=== PATIENT | male | born 1945 | race Caucasian/White ===

== ENCOUNTER 2020-08-18 11:34 | Emergency (ER) | payer MEDICARE, SELFPAY ==
--- NOTE | 2020-08-18 11:42 | XR_ITS ---
WS: [id number] Left hip, AP and frog leg views, 08/18/2020 Clinical Data: pain Comparison: None. Findings: No fractures or dislocations are seen. The hip joint is intact. The soft tissues are not remarkable. The adjacent pelvis is normal. XR/XR hip LT 2-3V wo/w pel* [id number] Impression: Negative left hip.
[2020-08-18 11:50] VITALS: BP 131/86; PULSE 87; RESP 18; TEMP 35.8; O2SAT 94; BMI 28.1
[2020-08-18] MEDS: HYDROcodone-acetaminophen 5-325 mg Tablet 1 TAB PO (12:05)
--- NOTE | 2020-08-18 12:07 | W.ED.EXTPRO ---
HPI - Extremity Problem General: Chief complaint: Extremity Problem,Nontraumatic Stated complaint: left hip pain Time Seen by Provider: 08/18/20 11:57 Source: patient Mode of arrival: ambulatory Limitations: no limitations History of Present Illness: HPI Narrative: 75-year-old male states he was lifting a bucket just prior to arrival and felt a pop in his left hip. He states that he has had left hip pain since then. He states that it is sharp in nature. States pain is currently a 7 out of 10 and is worse with movement or ambulating. States the pain radiates down his leg. Denies any other injuries. Denies any back pain. Associated symptoms: Deny chest pain, fever(s) or rash Review of Systems Const: Denies: fever(s), chills, body aches or change in appetite Eyes: Denies: blurry vision or eye discomfort ENMT: Denies: throat pain or dental pain Card: Denies: chest pain Resp: Denies: dyspnea GI: Denies: abdominal pain, nausea, vomiting or diarrhea : Denies: dysuria Musc: Reports: joint pain; Denies: neck pain or back pain Skin/Breast: Denies: rash Neuro: Denies: headache(s) Psych: Denies: depression Chi/Lymph: Denies: easy bruising All/Imm: Denies: urticaria Physical Exam Const: COMMON NORMALS: no acute distress, patient oriented x3 and healthy appearing HENMT: COMMON NORMALS: normocephalic and atraumatic HEAD & SCALP: normocephalic and atraumatic Eye: COMMON NORMALS: Equal, round and reactive pupils present and EOMs intact bilaterally PUPIL: Yes Equal, round and reactive pupils present Neck/C-Spine: COMMON NORMALS: full ROM and supple Chest: COMMONS NORMALS: normal inspection of the chest and normal palpation of entire chest wall Resp: COMMON NORMALS: normal respiratory effort, No retractions, No use of accessory muscles and clear to auscultation bilaterally AUSCULTATION: clear to auscultation bilaterally Cardio: COMMON NORMALS: regular rate, regular rhythm and No murmurs present (Cardio) RATE: regular rate RHYTHM: regular rhythm GI: COMMON NORMALS: Normal to inspection, nondistended, normoactive bowel sounds present, Soft to palpation, non-tender and no masses PALPATION: Yes Soft to palpation Extremity: COMMON NORMALS: normal to inspection NARRATIVE EXTREMITY EXAM: left hip tenderness pt able to ambulate Neuro: COMMON NORMALS: patient oriented x3, moves all extremities and no focal motor deficits Psych: COMMON NORMALS: mental status grossly normal, Normal thought process present and cooperative THOUGHT PROCESS: Normal thought process present Skin: COMMON NORMALS: no rashes or lesions noted and no wounds GENERAL SKIN EXAM: no rashes or lesions noted Course Vital Signs: Vital signs: Vital Signs Temperature 98.0 F 08/18/20 12:45 Pulse Rate 74 08/18/20 12:45 Respiratory Rate 18 08/18/20 12:45 Blood Pressure 128/78 08/18/20 12:45 Pulse Oximetry 98 08/18/20 12:45 MDM - Extremity (Nontraumatic) MDM Narrative: Medical decision making narrative: Jann presents here with a hip sprain likely muscular in nature. He is able ambulate and his x-rays show no fracture. We will have him follow-up with orthopedics he still has pain we will place him on Naprosyn and Robaxin he is to ice. He is return if worsening. He understands and agrees to plan. Imaging Data^: Xray Ortho: Radiologist's impression: [address] [place] [address] XRay Report Signed Patient: Jann Salas Unit #: [id number] : 1945 Age/Sex: 75 / M ADM Date: 08/18/20 Loc: ER Room/Bed: Attending Dr: Ordering Provider/Ordering MD: Bruce Roblero MD Date of Service: 08/18/20 Procedure(s): XR hip LT 2-3V wo/w pel* [id number] Accession Number(s): [id number] Report Number: [id number] WS: [id number] Left hip, AP and frog leg views, 08/18/2020 Clinical Data: pain Comparison: None. Findings: No fractures or dislocations are seen. The hip joint is intact. The soft tissues are not remarkable. The adjacent pelvis is normal. XR/XR hip LT 2-3V wo/w pel* [id number] Impression: Negative left hip. Discharge Plan Discharge Patient Disposition: Home Clinical Impression: Acute pain of left hip Condition: Stable Prescriptions: New Robaxin-750 750 mg tablet 750 mg PO Q6H Qty: 30 RF: 0 Naprosyn 500 mg tablet 500 mg PO BID PRN (Reason: pain) Qty: 20 RF: 0 Discharge Orders: Discharge ED (Routine); Ordered 08/18/20 Ordered By: Bruce Roblero Referrals: Shawn Matias DO [Physician] - 1-3 days Discharge Diet: Advance as tolerated Discharge Activity: Resume usual activity Patient Instructions: Hip Sprain (ED) Coding Level of Care Code ED Early Childhood Special Educator for Chg Fwd Exam Comprehensive
[2020-08-18 12:45] VITALS: BP 128/78; PULSE 74; RESP 18; TEMP 36.7; O2SAT 98
--- NOTE | 2020-08-18 14:47 | DCPLANNER ---
improvement manager was asked to schedule a follow up appointment for patient with ortho. improvement manager called the ortho clinic, spoke with Radha, gave clinic patients information. improvement manager was told that patients information would be printed and reviewed. Clinic will call patient with appointment information.
--- NOTE | 2020-09-14 11:29 | DCPLANNER ---
real estate sales manager called the ortho clinic to confirm if an appointment had been scheduled for patient. real estate sales manager was told that on 08.31.20, clinic called patient to schedule follow up appointment, and patient denied appointment at this time.
== END 2020-08-18 12:47 | disposition home or self-care (01) ==
PROVIDERS: Emergency Provider Emergency Medicine
DX: M25.552 Pain in left hip (principal)
CPT/HCPCS: 12345; 73502; 99281; 99283

== ENCOUNTER 2020-12-01 13:49 | Outpatient (CLI) | payer MEDICARE, SELFPAY ==
--- NOTE | 2020-12-01 13:53 | CT_ITS ---
WS: [id number] CT scan of the chest with IV contrast, additional two-dimensional coronal and sagittal reconstruction was performed. 12/01/2020 Clinical Data: CHEST PAIN, DYSPNEA, HYPERLIPDEMIA Comparison: PA and lateral chest, 11/18/2018. DLP: 969.[address] scans at [facility] use at least one of these dose optimization techniques: automat ed exposure control; mA and/or kV adjustment per patient size (includes targeted exams where dose is matched to clinical indication); or iterative reconstruction. Findings: There is a mass in the right lower lobe on the surface of the diaphragm which measures 2.97 x 4.48 x 4.98 cm in superior-inferior, transverse and AP dimensions respectively. No other masses are seen. Th ere are no nodules. No pleural effusions are present. The heart size is normal with no pericardial ef fusion. There is coronary artery calcification. The pulmonary arterial system and thoracic aorta demo nstrate no abnormalities or dilatations. The thyroid gland shows normal enhancement. The trachea bifu rcates normally into the bronchi. There is no axillary adenopathy. There is anterior and middle medi astinal adenopathy but the nodes are not significantly enlarged. The upper abdomen shows no abnormalities. The visualized liver shows no metastatic lesions in the adr enal glands are normal. The bony thorax shows only osteoarthritic change of the thoracic spine. CT/CT chest w con* [id number] Impression: 1. Right lower lobe mass adjacent to the right diaphragm with greatest dimensio n of 4.98 cm suspicious for cancer of the lung. 2. Recommend PA and lateral chest and consider PET scan. 3. Lung biopsy may be possible and would be helpful.
[2020-12-01] MEDS: iohexol 300 mg/mL 100 mL Btl IV (14:57)
== END 2020-12-01 13:50 | disposition home or self-care (01) ==
PROVIDERS: PCP Family Medicine; Visit Provider Family Medicine
DX: R07.9 Chest pain, unspecified (principal); R06.00 Dyspnea, unspecified; E78.5 Hyperlipidemia, unspecified; R91.8 Other nonspecific abnormal finding of lung field
CPT/HCPCS: 71260; Q9967

== ENCOUNTER 2020-12-10 07:49 | Outpatient (CLI) | payer MEDICARE, SELFPAY ==
[2020-12-10 08:36] VITALS: BMI 31.5
--- NOTE | 2020-12-10 08:37 | ECG_ITS ---
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 Interpretive Statements NAME OF STUDY: EXERCISE SESTAMIBI STRESS TEST INDICATION: Chest Pain; Shortness of Breath Baseline blood pressure of 140/83 mm Hg, heart rate 78 beats per minute and oxygen saturation 96%. EKG showed normal sinus rhythm, normal axis with normal ST-Ts. ??? The patient exercised for 3 minutes and 46 seconds on a [standard [place] protocol]. Patient attained a maximum heart rate of 130 beats per minute( 89 % of the maximum predicted heart rate) with a blood pressure at the peak exercise of 164/62 mm Hg and oxygen saturation of 96%. The EKG at the peak exercise revealed sinus tachycardia with no significant ST-T wave changes. Patient did not have any chest pain or any significant arrhythmis with the exercise. During the recovery phase, there were no new changes. ??? Blood pressure at the end of the recovery phase was 159/89 mm Hg with a heart rate of 86 beats per minute and oxygen saturation of 96%. ??? CONCLUSION: 1. Normal EKG response to treadmill exercise. 2. No exercise-induced chest pain or cardiac arrhythmia. 3. Decreased exercise tolerance, attained a maximum of 4.6 METs. Maximum VO2 of 16.1 ml/kg/min. 4. Baseline hypertension with normal response to exercise. 5. Perfusion scan will be documented separately. Electronically Signed On 12-12-2020 15:15:13 CDT by Sheeba Tatum M.D. [id number]
--- NOTE | 2020-12-10 08:37 | NMCV_ITS ---
NM fred perf SPECT r/s* [id number] Jann Salas Age: 75 Gender: M : 1945 Exam Date: 12/10/2020 08:37 Ordering Phys: Pepito Brunson MD Technologist: ANICETO Mosqueda Exam Location: [facility] Indications: CHEST PAIN STRESS TEST Please see separate stress test report in [facility] for full findings IMAGE PROTOCOL Rest/Stress 1 Exercise Day Radiopharmaceutical Dose (mCi) Administration Site Administered by Rest: Tc-99m 10.8 IV ANICETO Mosqueda Sestamibi Stress:Tc-99m 32.9 IV ANICETO Cruz Sestamibi Rest: 10-Dec-2020 60 Discovery 630 Stress: 10-Dec-2020 30 Discovery 630 0.4mg Lexiscan. Images obtained in supine and prone position. SPECT RESULTS Technical Quality: Excellent Raw Data Analysis: Normal Image Corrections: No attenuation or motion correction applied Summed Stress Score: 0 Summed Rest Score: 0 Summed Difference Score: 0 PERFUSION FINDINGS SPECT images demonstrate homogeneous tracer distribution throughout the myocardium. FUNCTIONAL RESULTS (calculated via Gated SPECT) Stress Image LV EF (%): 68 Stress EDV (mL):77 TID: 0.73 Stress ESV (mL):25 FUNCTIONAL FINDINGS: The left ventricle is normal in size. Transient Ischemia Dilatation of 0.73. There is normal left ventricular systolic function. The left ventricular ejection fraction is normal with a value of 68%. There is normal left ventricular wall thickening with no regional wall motion abnormality. Normal end diastolic and end systolic volumes. IMPRESSIONS 1. Myocardial perfusion imaging is normal. 2. Overall left ventricular systolic function is normal without regional wall motion abnormalities. 3. The left ventricular ejection fraction is normal with a value of 68%. 4. This study suggests a low likelihood of angiographically significant coronary artery disease. Sheeba Tatum MD (Electronically Signed) Final Date: 11 December 2020 19:19 S
--- NOTE | 2020-12-10 10:27 | SUR.PREOP ---
Patient reports no pain or discomfort prior to the start of the procedure.
[2020-12-10 10:52] VITALS: BP 150/90; PULSE 83
== END 2020-12-10 07:50 | disposition home or self-care (01) ==
PROVIDERS: PCP Family Medicine; Visit Provider Family Medicine
DX: R07.9 Chest pain, unspecified (principal); E78.5 Hyperlipidemia, unspecified; R06.02 Shortness of breath; I10 Essential (primary) hypertension
CPT/HCPCS: 78452; 93017; A9500

== ENCOUNTER → 2020-12-22 13:13 | Outpatient (BNVA) | payer MEDICARE, SELFPAY | PROVIDERS: PCP Family Medicine; Visit Provider Internal Medicine Critical Care Medicine | DX: R91.1 Solitary pulmonary nodule (principal); Z20.822 Contact with and (suspected) exposure to COVID-19 | CPT/HCPCS: 87635 ==

== ENCOUNTER 2020-12-27 08:30 | Outpatient (CLI) | payer MEDICARE, SELFPAY ==
--- NOTE | 2020-12-27 12:53 | PFTS_ITS ---
Date of Study:12/27/20 Date of Dictation: 12/28/2020 MECHANICS: Prebronchodilator forced vital capacity (FVC) is normal. Prebronchodilator forced expiratory volume in one second (FEV1) is normal. FEV1/FVC is normal. Postbronchodilator study not performed. FLOW VOLUME LOOP: normal. . LUNG VOLUMES: Total lung capacity (TLC) is normal. Residual volume (RV) is normal. DIFFUSING CAPACITY FOR CARBON MONOXIDE: Moderately reduced 55% . INTERPRETATION: The pre bronchodilator spirometry normal. Normal lung volumes. Isolated moderately reduced gas transfer defect just above pulmonary vascular disease. please correlate clinically. MTDD
== END 2020-12-27 08:31 | disposition home or self-care (01) ==
PROVIDERS: PCP Family Medicine; Visit Provider Internal Medicine Critical Care Medicine
DX: R91.8 Other nonspecific abnormal finding of lung field (principal)
CPT/HCPCS: 94010; 94726; 94729

== ENCOUNTER 2020-12-30 05:42 | Day surgery (SDC) | payer MEDICARE, SELFPAY ==
[2020-12-29 17:06] VITALS: BMI 31.5
[2020-12-30] VITALS (8 sets, daily range): BP systolic 56–143; BP diastolic 37–97; PULSE 75–103; RESP 10–17; TEMP 36.4–36.8; O2SAT 91–97
--- NOTE | 2020-12-30 | CT_ITS ---
Guided Bronchoscopy Planning CT images; total exam DLP: 808.28 mGy-cm MTDD
--- NOTE | 2020-12-30 06:56 | W.PM.OPSUD ---
Surgery/Procedure H&P Update DATE OF PROCEDURE: December 30, 2020 DATE H&P PERFORMED: 12/22/20 H&P UPDATE INFORMATION: I have reviewed H&P completed within last 30 days, I have examined patient prior to procedure and No changes to prior documentation PRIMARY INDICATION FOR PROCEDURE: Suspected lung cancer PLANNED PROCEDURE: Bronchoscopy inspection of the airway, possible endobronchial biopsies, bronchoalveolar lavage, navigational bronchoscopy guided transbronchial biopsy of the right lower lobe lung mass, fine-needle aspiration, Cytobrush, endobronchial sound guided transbronchial needle aspiration of lymph nodes and control of bleeding Operation Date: 12/30/20 07:00 Proposed Procedures p Veran [id number]/R91.8(Not Applicable) - Dominique Khan MD s Ebus(Not Applicable) - Dominique Khan MD
[2020-12-30] MEDS: sodium chloride 0.9% 1,000 ML 30 ML IV (07:10)
--- NOTE | 2020-12-30 07:12 | ANES.PREANE2 ---
Pre-Anesthetic Assessment Pre-Anesthetic Assessment: Height/Weight: Height 1.78 m Weight 99.79 kg Temp Pulse Resp BP Pulse Ox 97.9 F 75 16 143/97 97 12/30/20 06:27 12/30/20 06:27 12/30/20 06:27 12/30/20 06:27 12/30/20 06:27 Proposed Procedure: Operation Date: 12/30/20 07:00 Proposed Procedures p Veran [id number]/R91.8(Not Applicable) - Dominique Khan MD s Ebus(Not Applicable) - Dominique Khan MD Was Beta Edith taken within 24 hours: N/A Was Clonidine taken within 24 hours: N/A Last intake: Intake Last Liquid Date 12/29/20 Last Liquid Time 21:30 Last Solid Date 12/29/20 Last Solid Time 21:00 Social: Social History: Tobacco (h/o smoking) and No alcohol Exam: Pre-Anes Outpt Exam: alert, oriented x 3, clear to auscultation bilaterally and regular rate & rhythm Airway: Submandibular: WNL Cervical ROM: WNL MP: 2 Dentition: False Pulmonary: Pulmonary: COPD CV/HEM: CV/HEM: HTN Anesthetic Plan: ASA status: 3 Anesthesia: General Risk of > 500 ml blood loss (7ml/kg in children): No PFSH Anesthesia PFSH: Medical History (Updated 12/22/20 @ 12:56 by Dominique Khan MD) Allergies Detached retina HTN (hypertension) Hyperlipidemia Lung mass Skin cancer Surgical History (Updated 12/22/20 @ 12:48 by Dominique Khan MD) H/O eye surgery H/O knee surgery Family History (Updated 12/22/20 @ 12:15 by Lakisha Buchanan LPN) Sister CAD (coronary artery disease) Father Diabetes Mother Stroke Social History (Updated 12/22/20 @ 12:17 by Lakisha Buchanan LPN) Smoking and tobacco status: former smoker Quit status (tobacco): has quit using tobacco Year quit tobacco: 2020 Former quit date comment: Hx of 2 PPD x 45 Years Smoking risk assessment/counseling performed?: No Alcohol intake: current Alcohol intake frequency: 0-2 Drinks per Day Counseling given: Yes Counseling given: No Lives independently: Yes Household members: spouse Marital status: Current occupational status: retired History of recent travel: No Current gender identity: Male Data Anesthesia Cardiac Studies: No Data to Display
[2020-12-30] MEDS: lidocaine 1% INJ 20 mL XX (07:34)
--- NOTE | 2020-12-30 08:50 | PM.OP ---
Operative Report Date of procedure: December 30, 2020 Pre-op Diagnosis: Suspected lung cancer Post-op diagnosis: same Brief History: This is 75 old gentleman coming in for bronchoscopic evaluation for right lower lobe lung mass. Procedure: Name of the procedure: Bronchoscopy with inspection of the airway, bronchoalveolar lavage, endobronchial biopsies, navigational bronchoscopy guided fine needle aspiration, endobronchial ultrasound-guided transbronchial needle aspiration of right lower lobe lung mass and lymph nodes and control of bleeding. Indication: Suspected lung cancer Anesthesia: General anesthesia. Local anesthesia: The germán in the right and left mainstem bronchi were anesthetized with 1% lidocaine, 3 mL. Description of the procedure: The procedure was explained to the patient and the consent was obtained. The patient was brought to the OR. The patient underwent endotracheal intubation for general anesthesia. Following induction of general anesthesia, the bronchoscope was advanced through the ET tube. The lower trachea appeared to be normal. The germán was sharp. The germán, the right and left mainstem bronchi are anesthetized with 1% lidocaine. In a systematic manner bilateral bronchial tree was then examined. The bronchoscope was advanced into the left mainstem bronchus. The left upper lobe, lingula and left lower lobe bronchi were examined up to the third subsegmental level and no abnormalities were identified. There is no endobronchial lesion, active bleeding or mucous plug. The bronchoscope was then introduced into the right mainstem bronchus. The right upper lobe, right middle lobe bronchi were examined up to the third subsegmental level and no abnormalities were identified. The bronchoscope was then introduced into the right lower lobe bronchus. The superior, medial, lateral and posterior segmental airways did not show any abnormalities. The airways in the anterior segment revealed distortion and mild mucosal irregularities. Endobronchial biopsies were performed from the right lower lobe anterior segment bronchus Navigational bronchoscopy guided fine needle aspiration of the right lower lobe lung mass was performed. Multiple samples were obtained. Bronchoalveolar lavage was obtained from the anterior segment of the right lower lobe. 60 cc of saline was introduced, fluid return was 15 mm. The fluid was bloody. The endobronchial ultrasound was introduced through the ET tube. Right lower lobe lung mass was identified under ultrasound guidance. Fine-needle aspiration was performed from the right lower lobe lung mass. Fine-needle aspirations were also performed from station 7 and 11 R lymph nodes. Samples: 1. Bronchoalveolar lavage specimen was sent for cytology. 2. The endobronchial biopsies are sent for histopathology. 3. Fine-needle aspiration with navigational bronchoscopy from right lower lobe lung mass are sent for histopathology. 4. The endobronchial ultrasound-guided transbronchial needle aspiration of the right lower lobe lung mass and station 11 R and 7 are sent for histopathology. Complications: There was no immediate complications.
--- NOTE | 2020-12-30 09:29 | ANE.PACU2 ---
Inpatient post-anesthesia follow up: Airway intact: Yes Vital signs: Temperature 97.6 F Pulse Rate 75 Respiratory Rate 16 Blood Pressure 101/51 Pulse Oximetry 94 Oxygen Delivery Me thod Room Air Oxygen Flow Rate 8 Fraction of Inspir ed Oxygen Hydration adequate: Yes Nausea and vomiting: No Pain level: 1 Mental status: Baseline
--- NOTE | 2021-01-12 12:47 | SUR.OPER ---
0845 12/30/20 EBUS balloon removed intact
== END 2020-12-30 10:20 | disposition home or self-care (01) ==
PROVIDERS: PCP Family Medicine; Visit Provider Internal Medicine Critical Care Medicine
PROC: 0BJ08ZZ Inspection of Tracheobronchial Tree, Via Natural or Artificial Opening Endoscopic (ICD-10-PCS; CPT 31622; principal; 2020-12-30 07:00)
PROC: BB4BZZZ Ultrasonography of Pleura (ICD-10-PCS; CPT 31624; 2020-12-30 07:00)
DX: C34.90 Malignant neoplasm of unspecified part of unspecified bronchus or lung (principal); J44.9 Chronic obstructive pulmonary disease, unspecified; I10 Essential (primary) hypertension; E78.5 Hyperlipidemia, unspecified; Z87.891 Personal history of nicotine dependence; Z79.82 Long term (current) use of aspirin
CPT/HCPCS: 31624; 31625; 31629; 31653; 77011; 80500; 87070; 87205; 88305; J1100; J1170; J2370; J2405; J2704; J2710; J3010; J3490; J7030

== ENCOUNTER 2021-01-05 09:38 | Outpatient (CLI) | payer MEDICARE, SELFPAY ==
[2021-01-07 09:53] LABS: PD-L1 (Clone 22C3) by IHC BBPL See Report
--- NOTE | 2021-01-09 21:17 | ONC CON_ITS ---
Dr. Simmons New Patient Note Patient: Jann Salas Unit #: [id number]: 1945 Dicatated By: Mikki Simmons M.D.Date of Visit: Jan 05, 2021 Onc MED New Patient/Consult Referring Physician: No 'Referrals from' exist for this patient. History of Present Illness: Mr. Jann Salas, is a 75-year-old gentleman with history of progressive shortness of breath over the period of 6-months prior to the diagnosis underwent CT scan of the chest in November 2020 which showed right lower lobe mass measuring 2.9 x 4.4 x 4.98 with no significant lymphadenopathy and also shows emphysema, subsequently patient underwent CT PET scan on November 17, 2020 which showed hypermetabolic right lower lobe lung mass without any evidence of metastatic disease. And on December 30, 2020 underwent bronchoscopy and ultrasound-guided transbronchial biopsy obtained from right lower lobe mass confirmed non-small cell lung cancer probably squamous cell and lymph node biopsy from station 7 and 11 R showed no evidence of malignancy Patient is a former smoker used to smoke 2 packs/day for 45 years., Occasional alcohol intake, past medical history significant for hypertension, hyperlipidemia, detached retina status post eye surgery Patient denies any hemoptysis or hematemesis, denies any headaches blurred vision or double vision, denies any bony pains, denies any weight loss, denies any jaundice. Past Medical History: Mr. Salas's medical history consists of detached retina, history of skin cancer, hyperlipidemia, and hypertension. Past Surgical History: Mr. Salas's surgical/procedural history consists of eye surgery and knee surgery. Medications: Adult Aspirin EC Low Strength (81 mg) Tablet, enteric coated Oral daily, Ezetimibe (10 mg) Tablet Oral daily, Ipratropium [place] (0.03 %) Solution Nasal b.i.d., Lisinopril-hydroCHLOROthiazide (20-12.5 mg) Tablet Oral daily, PARoxetine HCl (40 mg) Tablet Oral daily, ProAir HFA (108 (90 base) mcg/act) Aerosol, solution Inhalation 6x/d, Simvastatin (20 mg) Tablet Oral daily, traMADol HCl (50 mg) Tablet Oral b.i.d. PRN, Umeclidinium-Vilanterol (62.5-25 mcg/inh) Aerosol Powder, Breath Activated Inhalation daily Allergies: No Known Allergies. Social History: Mr. Salas is . Mr. Salas quit smoking less than one year ago but had smoked for 45 years. He drinks occasionally. Family History: Mr. Salas's mother at age 68: stroke. Mr. Salas's father at age 72: type II diabetes. Mr. Salas has 1 sister who is : stroke. Review Of Symptoms: Review of Systems is not available for this patient. Vital Signs: Performed on Jan 05, 2021 10:23: 8, 0, 31.02 (HIGH), 2.21 sq.m, 71 in, 99 %, 88 /min, 18 /min, 152/53 mm(hg) (HIGH), 97.5 F (LOW), and 222.4 lbs (HIGH). Performance Status: 1 - No physically strenuous activity, but ambulatory and able to carry out light or sedentary work (e.g. office work, light house work). (ECOG) Physical Examination: ENMT - , No thrush, no jaundice, No mouth sores, no cervical lymphadenopathy, Respiratory - Poor air entry otherwise clear, Cardiovascular - Regular rate and rhythm of heart, Abdomen - Soft, bowel sounds present, Extremities - No visible edema. Lab/Imaging: Most recent lab results are not available for this patient. Impression: Non-small cell carcinoma involving the right lower lobe of lung per ultrasound-guided transbronchial biopsy done on December 30, 2020 Lymph node, station 7 and 11 R biopsy was negative for malignancy CT scan of chest done on December 02, 2019 showed 2.9 x 4.4 x 4.9 cm mass in the right lower lobe CT PET scan done on December 18, 2020 showed FDG positive right lower lobe lung mass negative for local or distant mets. Clinical stage IIa Plan: Discussed with patient regarding his disease status, pathology report as well as CT PET scan finding and CT scan finding which showed patient has underlying emphysema,Clinically, patient Probably has stage IIa , so treatment options including surgical resection versus SBRT versus combined chemoradiation therapy were discussed in detail, patient wants to explore surgical options but concerned about thoracotomy but may consider VATS, patient said he had his knee surgery done at [facility] and he was very impressed with the service he received there and also wants to go to thoracic surgery at [facility] for evaluation regarding surgical option but would consider seeing local radiation oncology regarding SBRT At this point will refer him to Dr. Randall, radiation oncology for evaluation and also refer him to [facility] cardiothoracic surgery for evaluation for surgical options and then patient return to clinic after evaluation at [facility] as well as with radiation oncology. Signed By: Mikki Simmons M.D. <<Signature on File>>
== END 2021-01-05 09:39 | disposition home or self-care (01) ==
LOC: ONCMED 09:40
PROVIDERS: PCP Family Medicine; Visit Provider Internal Medicine Hematology & Oncology
DX: C34.31 Malignant neoplasm of lower lobe, right bronchus or lung (principal); E78.5 Hyperlipidemia, unspecified; I10 Essential (primary) hypertension; J43.9 Emphysema, unspecified; Z79.899 Other long term (current) drug therapy; Z87.891 Personal history of nicotine dependence; Z92.21 Personal history of antineoplastic chemotherapy; Z92.3 Personal history of irradiation
CPT/HCPCS: 88342; 99205

== ENCOUNTER 2021-02-23 10:22 | Outpatient (CLI) | payer MEDICARE, SELFPAY ==
--- NOTE | 2021-02-23 13:16 | ONC FU_ITS ---
Dr. Simmons follow up note Patient: Jann Salas Unit #: [id number]: 1945 Dicatated By: Mikki Simmons M.D.Date of Visit:Feb 23, 2021 Onc Med Follow-up/Prog Note History of Present Illness: Mr. Jann Salas, is a 75-year-old gentleman with history of progressive shortness of breath over the period of 6-months prior to the diagnosis underwent CT scan of the chest in November 2020 which showed right lower lobe mass measuring 2.9 x 4.4 x 4.98 with no significant lymphadenopathy and also shows emphysema, subsequently patient underwent CT PET scan on November 17, 2020 which showed hypermetabolic right lower lobe lung mass without any evidence of metastatic disease. And on December 30, 2020 underwent bronchoscopy and ultrasound-guided transbronchial biopsy obtained from right lower lobe mass confirmed non-small cell lung cancer probably squamous cell and lymph node biopsy from station 7 and 11 R showed no evidence of malignancy Patient is a former smoker used to smoke 2 packs/day for 45 years., Occasional alcohol intake, past medical history significant for hypertension, hyperlipidemia, detached retina status post eye surgery Patient denies any hemoptysis or hematemesis, denies any headaches blurred vision or double vision, denies any bony pains, denies any weight loss, denies any jaundice. 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 He is trying [id number] Tylenol or Motrin alone with suboptimal pain control. Denies any hemoptysis or hematemesis. Patient is here to discuss about adjuvant therapy if needed. Medications: Adult Aspirin EC Low Strength (81 mg) Tablet, enteric coated Oral daily, Ezetimibe (10 mg) Tablet Oral daily, Ipratropium [place] (0.03 %) Solution Nasal b.i.d., Lisinopril-hydroCHLOROthiazide (20-12.5 mg) Tablet Oral daily, PARoxetine HCl (40 mg) Tablet Oral daily, ProAir HFA (108 (90 base) mcg/act) Aerosol, solution Inhalation 6x/d, Simvastatin (20 mg) Tablet Oral daily, traMADol HCl (50 mg) Tablet Oral b.i.d. PRN, Umeclidinium-Vilanterol (62.5-25 mcg/inh) Aerosol Powder, Breath Activated Inhalation daily Allergies: No Known Allergies. Review of Systems: Review of Systems is not available for this patient. Vital Signs: Performed on Feb 23, 2021 11:32 Height - 71.00 in Weight - 208.6 lbs (LOW) BSA - 2.15 sq.m BMI - 29.09 Temperature - 97.9 F (LOW) Pulse - 94 /min Respiration - 17 /min BP - 170/76 mm(hg) (HIGH) O2 Sat - 95 % (LOW) Pain - 7 Performance Status: 1 - No physically strenuous activity, but ambulatory and able to carry out light or sedentary work (e.g. office work, light house work). (ECOG) Physical Examination: ENMT - No mouth sores, no thrush, no jaundice, Respiratory - Lungs are clear to auscultation , Well-healed right posterior upper chest wall surgical wound, no discharge no overlying skin changes noted, Cardiovascular - Regular rate and rhythm of heart, Abdomen - Soft, bowel sounds present, Extremities - No visible edema. Lab/Imaging: Most recent lab results are not available for this patient. 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 status post right thoracotomy with right lower lobe lobectomy, mediastinal lymph node dissection done on January 28, 2021 which confirmed 4.5 x 3.5 cm invasive tumor with clear surgical margins T2b, 1 out of 11 positive lymph node and ipsilateral mediastinal and or subcarinal lymph node, N2, M0 stage IIIa Non-small cell carcinoma involving the right lower lobe of lung per ultrasound-guided transbronchial biopsy done on December 30, 2020 Lymph node, station 7 and 11 R biopsy was negative for malignancy CT PET scan done on December 18, 2020 showed FDG positive right lower lobe lung mass negative for local or distant mets. Plan: Discussed with patient regarding his disease status, and upgraded stage due to biopsy proven mediastinal lymph node involvement, pathologically patient has stage IIIa disease T2b, N2 and role of adjuvant therapy was discussed, at this point will consider molecular profiling including EGFR, ALK, BRAF, ROS 1, MET, RET and also consider guardant 360/caris, to identify targetable mutation, if patient has EGFR positive disease in that case we may consider osimertinib on the other hand if there is no targetable mutation, will consider cisplatin based adjuvant chemotherapy, followed by radiation therapy and maintenance immunotherapy. We will request pathology at [facility] regarding molecular profiling of the tissue and also order Caris testing and patient return to clinic in 2 weeks for further discussion. As well as right upper chest wall pain is concern, due to recent thoracotomy, patient was advised to try Percocet for better pain control, will give him Percocet 5/325 he will take 1 to 2 tablets 4 to 6 hours as needed. Signed By: Mikki Simmons M.D. <<Signature on File>>
== END 2021-02-23 10:23 | disposition home or self-care (01) ==
LOC: ONCMED 10:24
PROVIDERS: PCP Family Medicine; Visit Provider Internal Medicine Hematology & Oncology
DX: C34.31 Malignant neoplasm of lower lobe, right bronchus or lung (principal); C77.8 Secondary and unspecified malignant neoplasm of lymph nodes of multiple regions; Z79.899 Other long term (current) drug therapy
CPT/HCPCS: 99214

== ENCOUNTER 2021-03-14 08:09 | Outpatient (CLI) | payer MEDICARE, SELFPAY ==
--- NOTE | 2021-03-14 14:31 | ONC FU_ITS ---
Dr. Simmons follow up note Patient: Jann Salas Unit #: [id number]: 1945 Dicatated By: Mikki Simmons M.D.Date of Visit:Mar 14, 2021 Onc Med Follow-up/Prog Note History of Present Illness: Mr. Jann Salas, is a 75-year-old gentleman with history of progressive shortness of breath over the period of 6-months prior to the diagnosis underwent CT scan of the chest in November 2020 which showed right lower lobe mass measuring 2.9 x 4.4 x 4.98 with no significant lymphadenopathy and also shows emphysema, subsequently patient underwent CT PET scan on November 17, 2020 which showed hypermetabolic right lower lobe lung mass without any evidence of metastatic disease. And on December 30, 2020 underwent bronchoscopy and ultrasound-guided transbronchial biopsy obtained from right lower lobe mass confirmed non-small cell lung cancer probably squamous cell and lymph node biopsy from station 7 and 11 R showed no evidence of malignancy Patient is a former smoker used to smoke 2 packs/day for 45 years., Occasional alcohol intake, past medical history significant for hypertension, hyperlipidemia, detached retina status post eye surgery Patient denies any hemoptysis or hematemesis, denies any headaches blurred vision or double vision, denies any bony pains, denies any weight loss, denies any jaundice. 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, clear surgical margin T2b, 1 out of 11 lymph node positive for metastatic disease in ipsilateral mediastinal and/or subcarinal lymph node N2, M0, patient tolerated procedure well Molecular profile confirmed PD-L1 1%, otherwise EGFR, ALK, BRAF, ROS1, RET, MET all negative Came for follow-up, denies any specific complaint except persistent right posterior upper chest pain probably due to recent thoracotomy but under control with current pain medication, otherwise no fever chills, no nausea or vomiting no diarrhea constipation, no hemoptysis or hematemesis, no headaches blurred vision or double vision Medications: Adult Aspirin EC Low Strength (81 mg) Tablet, enteric coated Oral daily, Ezetimibe (10 mg) Tablet Oral daily, Ipratropium [place] (0.03 %) Solution Nasal b.i.d., Lisinopril-hydroCHLOROthiazide (20-12.5 mg) Tablet Oral daily, PARoxetine HCl (40 mg) Tablet Oral daily, ProAir HFA (108 (90 base) mcg/act) Aerosol, solution Inhalation 6x/d, Simvastatin (20 mg) Tablet Oral daily, traMADol HCl (50 mg) Tablet Oral b.i.d. PRN, Umeclidinium-Vilanterol (62.5-25 mcg/inh) Aerosol Powder, Breath Activated Inhalation daily Allergies: No Known Allergies. Review of Systems: Review of Systems is not available for this patient. Vital Signs: Performed on Mar 14, 2021 08:39 Height - 71.00 in Weight - 208.6 lbs BSA - 2.15 sq.m BMI - 29.09 Temperature - 98.1 F (LOW) Pulse - 86 /min Respiration - 18 /min BP - 145/72 mm(hg) (HIGH) O2 Sat - 96 % Pain - 5 Fatigue - 10 Performance Status: 0 - Fully active, able to carry on all predisease activities without restrictions. (ECOG) Physical Examination: ENMT - No mouth sores, no thrush, no jaundice, Respiratory - Lungs are clear to auscultation, Cardiovascular - Regular rate and rhythm of heart, Abdomen - Soft, bowel sounds present, Extremities, No visible edema. Lab/Imaging: Most recent lab results are not available for this patient. 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 status post right thoracotomy with right lower lobe lobectomy, mediastinal lymph node dissection done on January 28, 2021 which confirmed 4.5 x 3.5 cm invasive tumor with clear surgical margins T2b, 1 out of 11 positive lymph node and ipsilateral mediastinal and or subcarinal lymph node, N2, M0 stage IIIa Non-small cell carcinoma involving the right lower lobe of lung per ultrasound-guided transbronchial biopsy done on December 30, 2020 Lymph node, station 7 and 11 R biopsy was negative for malignancy CT PET scan done on December 18, 2020 showed FDG positive right lower lobe lung mass negative for local or distant mets. Molecular profiling confirmed PD-L1 1%,, otherwise ALK, BRAF, EGFR, RET, ROS1, MET are all negative Plan: Discussed with patient regarding his disease status and molecular profiling which showed no targetable mutation except PD-L1 1% , in that case, we will offer him adjuvant chemotherapy, patient is elderly moreover he is hard of hearing, using hearing aid so cisplatin may be a bit too harsh for him so we will consider carboplatin AUC 5 and Taxol every 3 weeks x 4 and then refer him to radiation oncology for evaluation for adjuvant radiation therapy All the side effect possible benefits associated with carboplatin/Taxol including but not limited to nausea vomiting, hair loss, constipation, peripheral neuropathy, allergic reaction, hyperglycemia,, bone marrow suppression were mentioned further teaching will be done by chemotherapy nurse, will obtain approval from his insurance prior to treatment, also request Port-A-Cath placement to facilitate chemotherapy administration., Patient return to clinic 1 week after chemotherapy is initiated with CBC CMP Signed By: Mikki Simmons M.D. <<Signature on File>>
== END 2021-03-14 08:10 | disposition home or self-care (01) ==
PROVIDERS: PCP Family Medicine; Visit Provider Internal Medicine Hematology & Oncology
DX: C34.31 Malignant neoplasm of lower lobe, right bronchus or lung (principal); C77.8 Secondary and unspecified malignant neoplasm of lymph nodes of multiple regions; Z79.899 Other long term (current) drug therapy
CPT/HCPCS: 99214

== ENCOUNTER → 2021-03-18 12:05 | Outpatient (BNVA) | payer MEDICARE, SELFPAY | PROVIDERS: PCP Family Medicine; Referring Provider Internal Medicine Hematology & Oncology; Visit Provider Surgery | DX: Z11.52 Encounter for screening for COVID-19 (principal); C34.91 Malignant neoplasm of unspecified part of right bronchus or lung | CPT/HCPCS: 87635 ==

== ENCOUNTER 2021-03-23 09:21 | Day surgery (SDC) | payer MEDICARE, SELFPAY ==
[2021-03-22 13:46] VITALS: BMI 29.4
[2021-03-23] VITALS (8 sets, daily range): BP systolic 111–136; BP diastolic 64–81; PULSE 72–82; RESP 15–19; TEMP 36.6–36.8; O2SAT 92–94
--- NOTE | 2021-03-23 | SCC_ITS ---
Procedure Done: Placement of PowerPort in the left internal jugular vein Fluoroscopic guidance and interpretation for placement of catheter Ultrasound guidance to access the left internal jugular vein 34.9 seconds of fluoroscopic guidance, for a cumulative dose of 5.98 mGy, was provided to Dr. Matta by the radiology department. C-arm images of the chest were saved for the patient's permanent record. [facility]
[2021-03-23] MEDS: sodium chloride 0.9% 1,000 ML 30 ML (10:05)
--- NOTE | 2021-03-23 10:31 | W.PM.OPSUD ---
Surgery/Procedure H&P Update DATE OF PROCEDURE: March 23, 2021 DATE H&P PERFORMED: 03/18/21 H&P UPDATE INFORMATION: I have reviewed H&P completed within last 30 days, I have examined patient prior to procedure and No changes to prior documentation PREOP DIAGNOSIS: Right lung cancer PLANNED PROCEDURE: Operation Date: 03/23/21 11:35 Proposed Procedures p Portacath Placement 90229 C34.91(Not Applicable) - Raz Matta MD
--- NOTE | 2021-03-23 10:39 | ANES.PREANE2 ---
Pre-Anesthetic Assessment Pre-Anesthetic Assessment: Height/Weight: Height 1.78 m Weight 92.986 kg Temp Pulse Resp BP Pulse Ox 98.1 F 82 18 136/77 93 03/23/21 09:50 03/23/21 09:50 03/23/21 09:50 03/23/21 09:50 03/23/21 09:50 Preop Diagnosis: Right lung cancer Proposed Procedure: Operation Date: 03/23/21 11:35 Proposed Procedures p Portacath Placement 57749 C34.91(Not Applicable) - Raz Matta MD Familial anesthetic complications: None Was Beta Edith taken within 24 hours: N/A Was Clonidine taken within 24 hours: N/A Last intake: > 8 hrs Social: Social History: Alcohol (2-3 drinks a day (liquor)) Comment: former smoker Exam: Pre-Anes Outpt Exam: alert, oriented x 3, clear to auscultation bilaterally and regular rate & rhythm Airway: Cervical ROM: WNL MP: 4 Dentition: Other (no teeth) Pulmonary: Pulmonary: COPD Comments: Lung cancer - not on supplemental O2 CV/HEM: CV/HEM: HTN Comments: 2020 stress test IMPRESSIONS 1. Myocardial perfusion imaging is normal. 2. Overall left ventricular systolic function is normal without regional wall motion abnormalities. 3. The left ventricular ejection fraction is normal with a value of 68%. 4. This study suggests a low likelihood of angiographically significant coronary artery disease. Metabolic: Metabolic: Hyperlipidemia Anesthetic Plan: ASA status: 3 Anesthesia: MAC Risk of > 500 ml blood loss (7ml/kg in children): No PFSH Anesthesia PFSH: Medical History (Updated 03/18/21 @ 12:01 by Raz Matta MD) Cancer of right lung Detached retina HTN (hypertension) Hyperlipidemia Skin cancer Surgical History (Updated 03/18/21 @ 12:01 by Raz Matta MD) H/O eye surgery H/O knee surgery History of carpal tunnel surgery History of umbilical hernia repair Family History (Updated 12/22/20 @ 12:15 by Lakisha Buchanan LPN) Sister CAD (coronary artery disease) Father Diabetes Mother Stroke Social History Smoking and tobacco status: former smoker Quit status (tobacco): has quit using tobacco Year quit tobacco: 2020 Former quit date comment: Hx of 2 PPD x 45 Years Smoking risk assessment/counseling performed?: No Alcohol intake: current Alcohol intake frequency: 0-2 Drinks per Day Counseling given: Yes Counseling given: No Lives independently: Yes Household members: spouse Marital status: Current occupational status: retired History of recent travel: No Current gender identity: Male Data Anesthesia Cardiac Studies: No Data to Display
--- NOTE | 2021-03-23 11:44 | SC_ITS ---
WS: [id number] C-arm fluoroscopy for left Port-A-Cath insertion, 03/23/2021 Clinical Data: port a cath Comparison: PA and lateral chest, 11/18/2018. Findings: The left Port-A-Cath was inserted via the left internal jugular veins and in the superior vena cava SC/C-arm FL for CVA [id number] Impression: Insertion of left Port-A-Cath.
[2021-03-23] MEDS: lidocaine 1% INJ 20 mL INTRAVESIC (12:05)
[2021-03-23] MEDS: heparin, porcine 1,000 unit/mL INJ 10 mL 6000 UNIT IRRIGATION (12:07)
--- NOTE | 2021-03-23 12:14 | PM.OP ---
Operative Report Date of procedure: March 23, 2021 Pre-op Diagnosis: Right lung cancer Post-op diagnosis: same Procedure Done: Placement of PowerPort in the left internal jugular vein Fluoroscopic guidance and interpretation for placement of catheter Ultrasound guidance to access the left internal jugular vein Pathology: none sent Surgeon: Raz Matta Anesthesia: MAC Condition: stable Disposition: PACU Procedure: The patient was taken to the Operating Room and the chest and neck bilaterally were prepped and draped in a sterile manner after the antibiotic had been administered and shoulder rolls had been placed. 1% lidocaine with 0.5% Marcaine was infiltrated at the side at the site of the planned entry into the left subclavian vein. 3 attempts were unsuccessful at passing the guidewire after accessing the vein and therefore I decided to place the catheter in the left internal jugular vein. An ultrasound of the left internal jugular vein revealed patent flow, no thrombus. An introducer needle was used to access the subclavian vein under the clavicle and after withdrawing blood syringe was removed and a guidewire passed under fluoroscopy into the superior vena cava. The site of the planned port was marked on the chest and a 15 blade was used to make a 3 cm skin incision this was extended into the subcutaneous tissue using electrocautery and a subcutaneous pocket over the pectoralis fascia was created, 2-0 Vicryl suture was used to suture the port to the pectoral fascia in the pocket on 3 sides. The catheter, after having been flushed with hep saline, was attached to the tunneler and a tunnel created between the port site and the internal jugular vein entry site. Under fluoroscopy the dilator sheath was passed over the guidewire into the proximal superior vena cava. The inner dilator was removed and the sheath left behind and the catheter was introduced through the peel-away sheath with the tip in the superior vena cava. The peel-away sheath was removed. The proximal end of the catheter was cut to the right size and was attached to the port. Using a Bell needle the port was accessed, it withdrew blood easily and flushed easily. A final 5cc of heparin was used to flush the PowerPort. The subcutaneous tissue was approximated using interrupted 3-0 Vicryl sutures and the skin at the introducer site and the port site was closed using subcuticular running 4-0 Monocryl sutures. Surgical glue was applied and the patient was stable throughout the procedure. Fluoroscopic guidance and interpretation was performed for introduction of the guidewire in the right internal jugular vein, passage of dilator and placement of catheter tip in the distal superior vena cava.
--- NOTE | 2021-03-23 12:45 | P.PCN_ITS ---
PACU note PACU note: VSS, Good respiratory effort, report to LOAN ADMINISTRATOR Post-Anesthesia Exam: awake
--- NOTE | 2021-03-23 12:45 | PM.PACU ---
PACU note PACU note: VSS, Good respiratory effort, report to CORE WORKER Post-Anesthesia Exam: awake
--- NOTE | 2021-03-23 14:32 | ANE.PACU2 ---
Inpatient post-anesthesia follow up: Airway intact: Yes Vital signs: Temperature 98.2 F Pulse Rate 75 Respiratory Rate 18 Blood Pressure 125/64 Pulse Oximetry 93 Oxygen Delivery Me thod Room Air Oxygen Flow Rate Fraction of Inspir ed Oxygen Hydration adequate: Yes Nausea and vomiting: No Pain level: 3 Mental status: Baseline
== END 2021-03-23 13:20 | disposition home or self-care (01) ==
PROVIDERS: PCP Family Medicine; Visit Provider Surgery
PROC: (CPT 36561; principal; 2021-03-23 11:35)
DX: C34.90 Malignant neoplasm of unspecified part of unspecified bronchus or lung (principal); J44.9 Chronic obstructive pulmonary disease, unspecified; I10 Essential (primary) hypertension; E78.5 Hyperlipidemia, unspecified; Z87.891 Personal history of nicotine dependence; Z82.49 Family history of ischemic heart disease and other diseases of the circulatory system; Z83.3 Family history of diabetes mellitus
CPT/HCPCS: 36561; 76000; 77001; 96365; C1788; J0690; J1644; J2405; J2704; J3010; J3490; J7030

== ENCOUNTER 2021-03-29 06:36 | Outpatient (CLI) | payer MEDICARE, SELFPAY ==
[2021-03-29 14:57] LABS: Basophils % 0.4 %; Eosinophils # 0.4 10^3/uL (0.0-0.8); Eosinophils % 3.7 %; Hematocrit 44.3 % (42.0-52.0); Hemoglobin 14.4 g/dL (11.7-16.6); Lymphocytes % 28.1 %; Mean Corpuscular HGB Conc 32.5 g/dL (30.0-36.0); Mean Corpuscular Volume 92.3 fL (80-94); Mean Platelet Volume 9.3 fL (7.4-10.4); Monocytes # 0.9 10^3/uL (0.2-0.9); Monocytes % 8.8 %; Neutrophils # 6.25 10^3/uL (1.8-7.7); Neutrophils % 58.6 %; Nucleated Red Blood Cells % 0 %; Platelet Count 234 10^3/cmm (130-400); Red Cell Distribution Width 15.1 % (12.1-15.1); White Blood Count 10.7 10^3/uL (4.0-10.0)
[2021-03-29 15:40] LABS: Alanine Aminotransferase 28 U/L (0-41); Albumin Level 4.1 g/dL (3.5-5.2); Alkaline Phosphatase 111 IU/L (40-130); Anion Gap 16.1 (5-19); Aspartate Amino Transferase 30 U/L (0-40); Blood Urea Nitrogen 12 mg/dL (8-23); Calcium 8.7 mg/dL (8.5-10.5); Carbon Dioxide 24 mmol/L (22-29); Chloride 97 mmol/L (98-107); Glucose 99 mg/dL (65-115); Osmolality Calculated 276 mOsm/kg (285-295); Potassium 4.1 mmol/L (3.5-5.1); Sodium 133 mmol/L (136-145); Total Bilirubin 0.4 mg/dL (0.15-1.2); Total Protein 7.1 g/dL (6.6-8.7)
== END 2021-03-29 06:37 | disposition home or self-care (01) ==
PROVIDERS: PCP Family Medicine; Visit Provider Internal Medicine Hematology & Oncology
DX: C34.31 Malignant neoplasm of lower lobe, right bronchus or lung (principal); Z79.899 Other long term (current) drug therapy
CPT/HCPCS: 36415; 36591; 80053; 85025

== ENCOUNTER 2021-04-14 05:40 | Outpatient (RCR) | payer MEDICARE, SELFPAY ==
[2021-03-30] MEDS: sodium chloride 0.9% 250 ML 75 ML IV (09:30)
[2021-03-30] MEDS: palonosetron 0.25 mg/5 mL SDV IV (09:30)
[2021-03-30] MEDS: famotidine 20 mg/2 mL INJ IVP (09:32)
[2021-03-30] MEDS: diphenhydrAMINE 50 mg/mL SDV 1mL 25 MG IV (09:35)
[2021-03-30] MEDS: fosaprepitant 150 MG in sodium chloride 0.9% 150 ML 300 MG IV (09:56)
--- NOTE | 2021-04-03 16:50 | ONC FU_ITS ---
Dr. Simmons follow up note Patient: Jann Salas Unit #: [id number]: 1945 Dicatated By: Mikki Simmons M.D.Date of Visit:Mar 30, 2021 Onc Med Follow-up/Prog Note History of Present Illness: Mr. Jann Salas, is a 75-year-old gentleman with history of progressive shortness of breath over the period of 6-months prior to the diagnosis underwent CT scan of the chest in November 2020 which showed right lower lobe mass measuring 2.9 x 4.4 x 4.98 with no significant lymphadenopathy and also shows emphysema, subsequently patient underwent CT PET scan on November 17, 2020 which showed hypermetabolic right lower lobe lung mass without any evidence of metastatic disease. And on December 30, 2020 underwent bronchoscopy and ultrasound-guided transbronchial biopsy obtained from right lower lobe mass confirmed non-small cell lung cancer probably squamous cell and lymph node biopsy from station 7 and 11 R showed no evidence of malignancy Patient is a former smoker used to smoke 2 packs/day for 45 years., Occasional alcohol intake, past medical history significant for hypertension, hyperlipidemia, detached retina status post eye surgery Patient denies any hemoptysis or hematemesis, denies any headaches blurred vision or double vision, denies any bony pains, denies any weight loss, denies any jaundice. 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, clear surgical margin T2b, 1 out of 11 lymph node positive for metastatic disease in ipsilateral mediastinal and/or subcarinal lymph node N2, M0, patient tolerated procedure well Molecular profile confirmed PD-L1 1%, otherwise EGFR, ALK, BRAF, ROS1, RET, MET all negative Came for follow-up, denies any specific complaints, no fever chills, no nausea or vomiting, no diarrhea or constipation, no mouth sores, no hemoptysis or hematemesis, no abdominal pain, no shortness of breath Medications: Adult Aspirin EC Low Strength (81 mg) Tablet, enteric coated Oral daily, Ezetimibe (10 mg) Tablet Oral daily, Ipratropium [place] (0.03 %) Solution Nasal b.i.d., Lisinopril-hydroCHLOROthiazide (20-12.5 mg) Tablet Oral daily, PARoxetine HCl (40 mg) Tablet Oral daily, ProAir HFA (108 (90 base) mcg/act) Aerosol, solution Inhalation 6x/d, Simvastatin (20 mg) Tablet Oral daily, traMADol HCl (50 mg) Tablet Oral b.i.d. PRN, Umeclidinium-Vilanterol (62.5-25 mcg/inh) Aerosol Powder, Breath Activated Inhalation daily Allergies: No Known Allergies. Review of Systems: Review of Systems is not available for this patient. Vital Signs: Performed on Mar 30, 2021 08:22 Height - 71.00 in Weight - 210.6 lbs (HIGH) BSA - 2.16 sq.m BMI - 29.37 Temperature - 98.1 F (LOW) Pulse - 105 /min (HIGH) Respiration - 20 /min BP - 161/82 mm(hg) (HIGH) O2 Sat - 94 % (LOW) Pain - 0 Fatigue - 9 Performance Status: 0 - Fully active, able to carry on all predisease activities without restrictions. (ECOG) Physical Examination: ENMT - No mouth sores, no thrush, no jaundice, Respiratory - Lungs are clear to auscultation, Cardiovascular - Regular rate and rhythm of heart, Abdomen - Soft, bowel sounds present, Extremities - No visible edema. 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 status post right thoracotomy with right lower lobe lobectomy, mediastinal lymph node dissection done on January 28, 2021 which confirmed 4.5 x 3.5 cm invasive tumor with clear surgical margins T2b, 1 out of 11 positive lymph node and ipsilateral mediastinal and or subcarinal lymph node, N2, M0 stage IIIa Non-small cell carcinoma involving the right lower lobe of lung per ultrasound-guided transbronchial biopsy done on December 30, 2020 Lymph node, station 7 and 11 R biopsy was negative for malignancy CT PET scan done on December 18, 2020 showed FDG positive right lower lobe lung mass negative for local or distant mets. Molecular profiling confirmed PD-L1 1%,, otherwise ALK, BRAF, EGFR, RET, ROS1, MET are all negative Started on adjuvant chemotherapy with carboplatin AUC 5/Taxol 175 mg/m??? every 3 weeks x4 on March 30, 2021 Plan: Discussed with patient regarding his labs white blood count 10.7 hemoglobin 14.4 hematocrit 44.3 platelets 234,000 CMP within normal limits We will proceed with cycle #1/4 with 3 weekly carboplatin AUC 5 Taxol 175 mg per metered square today and then he will return to clinic in 1 week with CBC CMP Signed By: Mikki Simmons M.D. <<Signature on File>>
[2021-04-05 13:15] LABS: Basophils % 0.5 %; Eosinophils # 0.2 10^3/uL (0.0-0.8); Eosinophils % 4.1 %; Hematocrit 41.2 % (42.0-52.0); Hemoglobin 13.5 g/dL (11.7-16.6); Lymphocytes # 1.8 10^3/uL (0.8-4.8); Lymphocytes % 46.5 %; Mean Corpuscular HGB Conc 32.8 g/dL (30.0-36.0); Mean Corpuscular Hemoglobin 30.3 pg (28.0-34.0); Mean Corpuscular Volume 92.6 fL (80-94); Mean Platelet Volume 9.9 fL (7.4-10.4); Monocytes # 0.1 10^3/uL (0.2-0.9); Monocytes % 2.8 %; Neutrophils # 1.74 10^3/uL (1.8-7.7); Neutrophils % 44.6 %; Nucleated Red Blood Cells % 0 %; Platelet Count 189 10^3/cmm (130-400); Red Blood Count 4.45 10^6/uL (4.1-5.3); Red Cell Distribution Width 14.7 % (12.1-15.1); White Blood Count 3.9 10^3/uL (4.0-10.0)
[2021-04-05 13:32] LABS: Alanine Aminotransferase 23 U/L (0-41); Albumin Level 3.8 g/dL (3.5-5.2); Alkaline Phosphatase 81 IU/L (40-130); Anion Gap 14.5 (5-19); Aspartate Amino Transferase 20 U/L (0-40); Blood Urea Nitrogen 17 mg/dL (8-23); Calcium 8.6 mg/dL (8.5-10.5); Carbon Dioxide 26 mmol/L (22-29); Chloride 97 mmol/L (98-107); Globulin 2.7 g/dL (1.3-4.6); Glucose 103 mg/dL (65-115); Osmolality Calculated 278 mOsm/kg (285-295); Potassium 4.5 mmol/L (3.5-5.1); Sodium 133 mmol/L (136-145); Total Bilirubin 0.5 mg/dL (0.15-1.2); Total Protein 6.5 g/dL (6.6-8.7)
[2021-04-05 14:24] LABS: Slide Review Slide Review Perform
--- NOTE | 2021-04-06 14:09 | ONC FU_ITS ---
Dr. Simmons follow up note Patient: Jann Salas Unit #: [id number]: 1945 Dicatated By: Mikki Simmons M.D.Date of Visit:Apr 06, 2021 Onc Med Follow-up/Prog Note History of Present Illness: Mr. Jann Salas, is a 75-year-old gentleman with history of progressive shortness of breath over the period of 6-months prior to the diagnosis underwent CT scan of the chest in November 2020 which showed right lower lobe mass measuring 2.9 x 4.4 x 4.98 with no significant lymphadenopathy and also shows emphysema, subsequently patient underwent CT PET scan on November 17, 2020 which showed hypermetabolic right lower lobe lung mass without any evidence of metastatic disease. And on December 30, 2020 underwent bronchoscopy and ultrasound-guided transbronchial biopsy obtained from right lower lobe mass confirmed non-small cell lung cancer probably squamous cell and lymph node biopsy from station 7 and 11 R showed no evidence of malignancy Patient is a former smoker used to smoke 2 packs/day for 45 years., Occasional alcohol intake, past medical history significant for hypertension, hyperlipidemia, detached retina status post eye surgery Patient denies any hemoptysis or hematemesis, denies any headaches blurred vision or double vision, denies any bony pains, denies any weight loss, denies any jaundice. 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 Patient is said he was hurting all over in the bones as well as muscles, not sure what he exert too much while he was on steroids around chemotherapy. Denies any nausea or vomiting denies any fever chills denies any mouth sores denies any constipation denies any peripheral neuropathy, appetite is reasonable. Tolerated first cycle of chemotherapy with carboplatin/Taxol reasonably well otherwise Medications: Adult Aspirin EC Low Strength (81 mg) Tablet, enteric coated Oral daily, Ezetimibe (10 mg) Tablet Oral daily, Ipratropium [place] (0.03 %) Solution Nasal b.i.d., Lisinopril-hydroCHLOROthiazide (20-12.5 mg) Tablet Oral daily, PARoxetine HCl (40 mg) Tablet Oral daily, ProAir HFA (108 (90 base) mcg/act) Aerosol, solution Inhalation 6x/d, Simvastatin (20 mg) Tablet Oral daily, traMADol HCl (50 mg) Tablet Oral b.i.d. PRN, Umeclidinium-Vilanterol (62.5-25 mcg/inh) Aerosol Powder, Breath Activated Inhalation daily Allergies: No Known Allergies. Review of Systems: Review of Systems is not available for this patient. Vital Signs: Performed on Apr 06, 2021 12:35 Height - 71.00 in Weight - 212.8 lbs (HIGH) BSA - 2.17 sq.m BMI - 29.68 Temperature - 98.7 F Pulse - 88 /min Respiration - 18 /min BP - 152/79 mm(hg) (HIGH) O2 Sat - 94 % (LOW) Pain - 8 Fatigue - 8 Performance Status: 0 - Fully active, able to carry on all predisease activities without restrictions. (ECOG) Physical Examination: ENMT - . No mouth sores, no thrush, no jaundice, Respiratory - Lungs are clear to auscultation, Cardiovascular - Regular rate and rhythm of heart, Abdomen - Soft, bowel sounds present, Extremities - No visible edema or rash. 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 status post right thoracotomy with right lower lobe lobectomy, mediastinal lymph node dissection done on January 28, 2021 which confirmed 4.5 x 3.5 cm invasive tumor with clear surgical margins T2b, 1 out of 11 positive lymph node and ipsilateral mediastinal and or subcarinal lymph node, N2, M0 stage IIIa Non-small cell carcinoma involving the right lower lobe of lung per ultrasound-guided transbronchial biopsy done on December 30, 2020 Lymph node, station 7 and 11 R biopsy was negative for malignancy CT PET scan done on December 18, 2020 showed FDG positive right lower lobe lung mass negative for local or distant mets. Molecular profiling confirmed PD-L1 1%,, otherwise ALK, BRAF, EGFR, RET, ROS1, MET are all negative Started on adjuvant chemotherapy with carboplatin AUC 5/Taxol 175 mg/m??? every 3 weeks x4 on March 30, 2021 Plan: Discussed with patient regarding his labs white blood count 3.9 hemoglobin 13.5 hematocrit 41.2 platelets 129,000 ANC 1740 CMP within normal limits except sodium 133 Clinically, patient is doing reasonably well, tolerated first cycle of chemotherapy with carboplatin/Taxol well but with expected side effect e.g. generalized body aches, his follow-up labs shows mild leukopenia/neutropenia most likely due to chemotherapy, will continue to monitor he will return to clinic in 1 week with CBC CMP if there is a further drop in his white blood count, may consider Neulasta after second cycle of chemotherapy unless chemotherapy dosing schedule changed to weekly carboplatin/Taxol if patient continues to feel bad due to persistent musculoskeletal pain. Patient return to clinic in 1 week with CBC CMP and if symptoms persist, will consider changing him to weekly carboplatin/Taxol for remaining 3 cycles of chemotherapy on the other hand if symptoms resolve, will consider continue with 3 weekly carboplatin and Taxol Signed By: Mikki Simmons M.D. <<Signature on File>>
[2021-04-12 08:30] LABS: Basophils # 0.1 10^3/uL (0.0-0.1); Basophils % 1.4 %; Eosinophils # 0.2 10^3/uL (0.0-0.8); Eosinophils % 6.2 %; Hematocrit 41.4 % (42.0-52.0); Hemoglobin 13.7 g/dL (11.7-16.6); Lymphocytes # 2.2 10^3/uL (0.8-4.8); Lymphocytes % 61.3 %; Mean Corpuscular HGB Conc 33.1 g/dL (30.0-36.0); Mean Corpuscular Hemoglobin 30.5 pg (28.0-34.0); Mean Corpuscular Volume 92.2 fL (80-94); Mean Platelet Volume 9.2 fL (7.4-10.4); Monocytes # 0.8 10^3/uL (0.2-0.9); Neutrophils % 7.3 %; Nucleated Red Blood Cells % 0 %; Platelet Count 197 10^3/cmm (130-400); Red Blood Count 4.49 10^6/uL (4.1-5.3); Red Cell Distribution Width 15.4 % (12.1-15.1); White Blood Count 3.6 10^3/uL (4.0-10.0)
[2021-04-12 08:37] LABS: Neutrophils # 0.26 10^3/uL (1.8-7.7)
[2021-04-12 08:56] LABS: Alanine Aminotransferase 32 U/L (0-41); Albumin Level 3.9 g/dL (3.5-5.2); Alkaline Phosphatase 100 IU/L (40-130); Anion Gap 15.4 (5-19); Aspartate Amino Transferase 29 U/L (0-40); Blood Urea Nitrogen 9 mg/dL (8-23); Calcium 8.3 mg/dL (8.5-10.5); Carbon Dioxide 24 mmol/L (22-29); Chloride 97 mmol/L (98-107); Globulin 2.6 g/dL (1.3-4.6); Glucose 101 mg/dL (65-115); Osmolality Calculated 273 mOsm/kg (285-295); Potassium 4.4 mmol/L (3.5-5.1); Sodium 132 mmol/L (136-145); Total Bilirubin 0.3 mg/dL (0.15-1.2); Total Protein 6.5 g/dL (6.6-8.7)
[2021-04-14 10:05] LABS: Basophils # 0.1 10^3/uL (0.0-0.1); Basophils % 1.3 %; Eosinophils # 0.2 10^3/uL (0.0-0.8); Hematocrit 41.1 % (42.0-52.0); Hemoglobin 13.3 g/dL (11.7-16.6); Lymphocytes # 2.5 10^3/uL (0.8-4.8); Lymphocytes % 46.4 %; Mean Corpuscular HGB Conc 32.4 g/dL (30.0-36.0); Mean Corpuscular Hemoglobin 29.9 pg (28.0-34.0); Mean Corpuscular Volume 92.4 fL (80-94); Mean Platelet Volume 9.1 fL (7.4-10.4); Monocytes # 0.8 10^3/uL (0.2-0.9); Monocytes % 14.3 %; Neutrophils % 34.1 %; Nucleated Red Blood Cells % 0 %; Platelet Count 196 10^3/cmm (130-400); Red Blood Count 4.45 10^6/uL (4.1-5.3); Red Cell Distribution Width 15.4 % (12.1-15.1); White Blood Count 5.3 10^3/uL (4.0-10.0)
[2021-04-14 10:30] LABS: Alanine Aminotransferase 31 U/L (0-41); Albumin Level 3.8 g/dL (3.5-5.2); Alkaline Phosphatase 102 IU/L (40-130); Anion Gap 14.1 (5-19); Aspartate Amino Transferase 30 U/L (0-40); Blood Urea Nitrogen 9 mg/dL (8-23); Calcium 8.3 mg/dL (8.5-10.5); Carbon Dioxide 25 mmol/L (22-29); Chloride 98 mmol/L (98-107); Globulin 2.7 g/dL (1.3-4.6); Glucose 90 mg/dL (65-115); Osmolality Calculated 274 mOsm/kg (285-295); Potassium 4.1 mmol/L (3.5-5.1); Sodium 133 mmol/L (136-145); Total Bilirubin 0.3 mg/dL (0.15-1.2); Total Protein 6.5 g/dL (6.6-8.7)
--- NOTE | 2021-04-14 14:31 | ONC FU_ITS ---
Dr. Simmons follow up note Patient: Jann Salas Unit #: [id number]: 1945 Dicatated By: Mikki Simmons M.D.Date of Visit:Apr 14, 2021 Onc Med Follow-up/Prog Note History of Present Illness: Mr. Jann Salas, is a 75-year-old gentleman with history of progressive shortness of breath over the period of 6-months prior to the diagnosis underwent CT scan of the chest in November 2020 which showed right lower lobe mass measuring 2.9 x 4.4 x 4.98 with no significant lymphadenopathy and also shows emphysema, subsequently patient underwent CT PET scan on November 17, 2020 which showed hypermetabolic right lower lobe lung mass without any evidence of metastatic disease. And on December 30, 2020 underwent bronchoscopy and ultrasound-guided transbronchial biopsy obtained from right lower lobe mass confirmed non-small cell lung cancer probably squamous cell and lymph node biopsy from station 7 and 11 R showed no evidence of malignancy Patient is a former smoker used to smoke 2 packs/day for 45 years., Occasional alcohol intake, past medical history significant for hypertension, hyperlipidemia, detached retina status post eye surgery Patient denies any hemoptysis or hematemesis, denies any headaches blurred vision or double vision, denies any bony pains, denies any weight loss, denies any jaundice. 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 Khan, as per patient, he is scheduled for pulmonary function test otherwise no fever chills, no nausea or vomiting, no diarrhea constipation no skin rash, no peripheral numbness. As per patient the first cycle of chemotherapy caused generalized weakness and fatigue which took a long time to recover but overall feeling better now no hemoptysis or hematemesis, his CBC done on April 12, 2021 shows absolute neutrophil count was 260 so he was started on Levaquin, tolerating well Medications: Adult Aspirin EC Low Strength (81 mg) Tablet, enteric coated Oral daily, Ezetimibe (10 mg) Tablet Oral daily, Ipratropium [place] (0.03 %) Solution Nasal b.i.d., levoFLOXacin 1 Each (of 750 mg) Tablet Oral daily for 5 days, Lisinopril-hydroCHLOROthiazide (20-12.5 mg) Tablet Oral daily, PARoxetine HCl (40 mg) Tablet Oral daily, ProAir HFA (108 (90 base) mcg/act) Aerosol, solution Inhalation 6x/d, Simvastatin (20 mg) Tablet Oral daily, traMADol HCl (50 mg) Tablet Oral b.i.d. PRN, Umeclidinium-Vilanterol (62.5-25 mcg/inh) Aerosol Powder, Breath Activated Inhalation daily Allergies: No Known Allergies. Review of Systems: Review of Systems is not available for this patient. Vital Signs: Performed on Apr 14, 2021 08:30 Height - 71.00 in Weight - 212.6 lbs (LOW) BSA - 2.16 sq.m BMI - 29.65 Temperature - 98.6 F Pulse - 78 /min Respiration - 18 /min BP - 134/80 mm(hg) O2 Sat - 97 % Pain - 5 Performance Status: 0 - Fully active, able to carry on all predisease activities without restrictions. (ECOG) Physical Examination: ENMT - . No mouth sores, no thrush, no jaundice, Respiratory - Poor air entry otherwise clear, Cardiovascular - Regular rate and rhythm of heart, Abdomen - Soft, bowel sounds present, Extremities - No visible edema or rash. 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 status post right thoracotomy with right lower lobe lobectomy, mediastinal lymph node dissection done on January 28, 2021 which confirmed 4.5 x 3.5 cm invasive tumor with clear surgical margins T2b, 1 out of 11 positive lymph node and ipsilateral mediastinal and or subcarinal lymph node, N2, M0 stage IIIa Non-small cell carcinoma involving the right lower lobe of lung per ultrasound-guided transbronchial biopsy done on December 30, 2020 Lymph node, station 7 and 11 R biopsy was negative for malignancy CT PET scan done on December 18, 2020 showed FDG positive right lower lobe lung mass negative for local or distant mets. Molecular profiling confirmed PD-L1 1%,, otherwise ALK, BRAF, EGFR, RET, ROS1, MET are all negative Started on adjuvant chemotherapy with carboplatin AUC 5/Taxol 175 mg/m??? every 3 weeks x4 on March 30, 2021 Plan: Discussed with patient regarding his labs from today showed resolution of leukopenia/neutropenia, at this point will stop his Levaquin as patient is not running any fever or no signs symptom suggestive of infection, patient will return to clinic in 1 week with CBC CMP and for cycle #2/4 adjuvant chemotherapy with 3 weekly carboplatin/Taxol with Neulasta support to prevent chemotherapy-induced leukopenia/neutropenia As far as dyspnea on exertion concern, patient being evaluated by pulmonology Signed By: Mikki Simmons M.D. <<Signature on File>>
== END 2021-04-16 23:59 | disposition home or self-care (01) ==
LOC: ONCMED 05:40
PROVIDERS: PCP Family Medicine; Visit Provider Internal Medicine Hematology & Oncology
DX: Z51.11 Encounter for antineoplastic chemotherapy (principal); C34.31 Malignant neoplasm of lower lobe, right bronchus or lung; R06.00 Dyspnea, unspecified; Z79.899 Other long term (current) drug therapy
CPT/HCPCS: 36415; 36591; 80053; 85025; 96367; 96375; 96413; 96415; 96417; 99214; 99215; J1100; J1200; J1453; J2469; J3490; J7030; J7040; J7050; J9045; J9267

== ENCOUNTER 2021-05-11 05:40 | Outpatient (RCR) | payer MEDICARE, SELFPAY ==
[2021-04-20 08:27] LABS: Basophils % 0.4 %; Hematocrit 41.9 % (42.0-52.0); Hemoglobin 13.7 g/dL (11.7-16.6); Lymphocytes # 1.2 10^3/uL (0.8-4.8); Lymphocytes % 14.8 %; Mean Corpuscular HGB Conc 32.7 g/dL (30.0-36.0); Mean Corpuscular Hemoglobin 30.5 pg (28.0-34.0); Mean Corpuscular Volume 93.3 fL (80-94); Mean Platelet Volume 8.9 fL (7.4-10.4); Monocytes # 0.1 10^3/uL (0.2-0.9); Monocytes % 1.2 %; Neutrophils # 6.87 10^3/uL (1.8-7.7); Neutrophils % 82.5 %; Nucleated Red Blood Cells % 0 %; Platelet Count 197 10^3/cmm (130-400); Red Blood Count 4.49 10^6/uL (4.1-5.3); Red Cell Distribution Width 15.3 % (12.1-15.1); White Blood Count 8.3 10^3/uL (4.0-10.0)
[2021-04-20 09:03] LABS: Alanine Aminotransferase 30 U/L (0-41); Albumin Level 3.9 g/dL (3.5-5.2); Alkaline Phosphatase 121 IU/L (40-130); Anion Gap 16.1 (5-19); Aspartate Amino Transferase 30 U/L (0-40); Blood Urea Nitrogen 11 mg/dL (8-23); Calcium 8.7 mg/dL (8.5-10.5); Carbon Dioxide 22 mmol/L (22-29); Chloride 100 mmol/L (98-107); Globulin 2.6 g/dL (1.3-4.6); Glucose 183 mg/dL (65-115); Osmolality Calculated 282 mOsm/kg (285-295); Potassium 4.1 mmol/L (3.5-5.1); Sodium 134 mmol/L (136-145); Total Bilirubin 0.3 mg/dL (0.15-1.2); Total Protein 6.5 g/dL (6.6-8.7)
[2021-04-20] MEDS: palonosetron 0.25 mg/5 mL SDV IV (10:30)
[2021-04-20] MEDS: sodium chloride 0.9% 250 ML 75 ML IV (10:30)
[2021-04-20] MEDS: famotidine 20 mg/2 mL INJ IVP (10:31)
[2021-04-20] MEDS: diphenhydrAMINE 50 mg/mL SDV 1mL 25 MG IV (10:33)
[2021-04-20] MEDS: fosaprepitant 150 MG in sodium chloride 0.9% 150 ML 300 MG IV (10:51)
[2021-04-20] MEDS: pegfilgrastim 6 mg/0.6 mL Kit (onpro) SUBCUT (15:30)
--- NOTE | 2021-04-20 15:45 | ONC FU_ITS ---
Dr. Simmons follow up note Patient: Jann Salas Unit #: [id number]: 1945 Dicatated By: Mikki Simmons M.D.Date of Visit:Apr 20, 2021 Onc Med Follow-up/Prog Note History of Present Illness: Mr. Jann Salas, is a 75-year-old gentleman with history of progressive shortness of breath over the period of 6-months prior to the diagnosis underwent CT scan of the chest in November 2020 which showed right lower lobe mass measuring 2.9 x 4.4 x 4.98 with no significant lymphadenopathy and also shows emphysema, subsequently patient underwent CT PET scan on November 17, 2020 which showed hypermetabolic right lower lobe lung mass without any evidence of metastatic disease. And on December 30, 2020 underwent bronchoscopy and ultrasound-guided transbronchial biopsy obtained from right lower lobe mass confirmed non-small cell lung cancer probably squamous cell and lymph node biopsy from station 7 and 11 R showed no evidence of malignancy Patient is a former smoker used to smoke 2 packs/day for 45 years., Occasional alcohol intake, past medical history significant for hypertension, hyperlipidemia, detached retina status post eye surgery Patient denies any hemoptysis or hematemesis, denies any headaches blurred vision or double vision, denies any bony pains, denies any weight loss, denies any jaundice. 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, clear surgical margin T2b, 1 out of 11 lymph node positive for metastatic disease in ipsilateral mediastinal and/or subcarinal lymph node N2, M0, patient tolerated procedure well Molecular profile confirmed PD-L1 1%, otherwise EGFR, ALK, BRAF, ROS1, RET, MET all negative Started on adjuvant therapy with 3 weekly carboplatin/Taxol X4 on 03/30/2021 Came for follow-up, denies any specific complaints, no fever chills, no nausea or vomiting, no diarrhea or constipation, patient took his premedication for Taxol infusion last night and this morning as per patient with his first chemotherapy he did not take recommended dexamethasone dose but this time he did follow the instructions. Otherwise no other complaints and tolerating carboplatin/Taxol well Medications: Adult Aspirin EC Low Strength (81 mg) Tablet, enteric coated Oral daily, Ezetimibe (10 mg) Tablet Oral daily, Ipratropium [place] (0.03 %) Solution Nasal b.i.d., levoFLOXacin 1 Each (of 750 mg) Tablet Oral daily for 5 days, Lisinopril-hydroCHLOROthiazide (20-12.5 mg) Tablet Oral daily, PARoxetine HCl (40 mg) Tablet Oral daily, ProAir HFA (108 (90 base) mcg/act) Aerosol, solution Inhalation 6x/d, Simvastatin (20 mg) Tablet Oral daily, traMADol HCl (50 mg) Tablet Oral b.i.d. PRN, Umeclidinium-Vilanterol (62.5-25 mcg/inh) Aerosol Powder, Breath Activated Inhalation daily Allergies: No Known Allergies. Review of Systems: Review of Systems is not available for this patient. Vital Signs: Performed on Apr 20, 2021 09:22 Height - 71.00 in Weight - 215.0 lbs (HIGH) BSA - 2.17 sq.m BMI - 29.99 Temperature - 97.9 F (LOW) Pulse - 109 /min (HIGH) Respiration - 18 /min BP - 162/84 mm(hg) (HIGH) O2 Sat - 93 % (LOW) Pain - 0 Performance Status: 0 - Fully active, able to carry on all predisease activities without restrictions. (ECOG) Physical Examination: ENMT - No mouth sores, no thrush, no jaundice, Respiratory - Lungs are clear to auscultation, Cardiovascular - Regular rate and rhythm of heart, Abdomen - Soft, bowel sounds present, Extremities - No visible edema. Lab/Imaging: Test performed on Apr 20, 2021 09:14 Creatinine 0.6 mg/dL Cr Clearance (Est) 142.37 mL/min Test performed on Mar 29, 2021 14:35 WBC 10.7 10 3/uL RBC 4.80 10 6/uL HGB 14.4 g/dL HCT 44.3 % MCV 92.3 fL MCH 30.0 pg MCHC 32.5 g/dL RDW 15.1 % Platelet Count 234 10 3/cmm MPV 9.3 fL Neutrophils 6.25 10 3/uL Lymphocytes 3.0 10 3/uL Monocytes 0.9 10 3/uL Eosinophils 0.4 10 3/uL Basophils 0.0 10 3/uL Neutrophil % 58.6 % Lymphocyte % 28.1 % Monocyte % 8.8 % Eosinophil % 3.7 % Basophils % 0.4 % NRBC % 0 % 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 status post right thoracotomy with right lower lobe lobectomy, mediastinal lymph node dissection done on January 28, 2021 which confirmed 4.5 x 3.5 cm invasive tumor with clear surgical margins T2b, 1 out of 11 positive lymph node and ipsilateral mediastinal and or subcarinal lymph node, N2, M0 stage IIIa Non-small cell carcinoma involving the right lower lobe of lung per ultrasound-guided transbronchial biopsy done on December 30, 2020 Lymph node, station 7 and 11 R biopsy was negative for malignancy CT PET scan done on December 18, 2020 showed FDG positive right lower lobe lung mass negative for local or distant mets. Molecular profiling confirmed PD-L1 1%,, otherwise ALK, BRAF, EGFR, RET, ROS1, MET are all negative Started on adjuvant chemotherapy with carboplatin AUC 5/Taxol 175 mg/m??? every 3 weeks x4 on March 30, 2021 Plan: Discussed with patient regarding his labs white blood count 8.3 hemoglobin 13.7 hematocrit 41.9 platelets 197,000 CMP within normal limit except glucose 183 Clinically, patient is doing well with no new signs symptom, his lab work-up is within normal range, will proceed with cycle #2/4 carboplatin/Taxol followed by Neulasta support to prevent chemotherapy-induced neutropenia. Patient will return to clinic in 2 weeks with CBC CMP As far as mild hyperglycemia is concerned, probably due to steroids, patient was advised to monitor his diet and follow sliding scale Signed By: Mikki Simmons M.D. <<Signature on File>>
[2021-05-11 09:39] LABS: Basophils % 0.2 %; Hematocrit 39.2 % (42.0-52.0); Hemoglobin 13.3 g/dL (11.7-16.6); Lymphocytes # 0.9 10^3/uL (0.8-4.8); Lymphocytes % 9.4 %; Mean Corpuscular HGB Conc 33.9 g/dL (30.0-36.0); Mean Corpuscular Hemoglobin 32.3 pg (28.0-34.0); Mean Corpuscular Volume 95.1 fl (80-94); Mean Platelet Volume 9.5 fL (7.4-10.4); Monocytes # 0.1 10^3/uL (0.2-0.9); Monocytes % 0.9 %; Neutrophils # 8.13 10^3/uL (1.8-7.7); Neutrophils % 88.8 %; Nucleated Red Blood Cells % 0 %; Platelet Count 270 10^3/cmm (130-400); Red Blood Count 4.12 10^6/uL (4.1-5.3); Red Cell Distribution Width 16.9 % (12.1-15.1); White Blood Count 9.2 10^3/uL (4.0-10.0)
[2021-05-11 09:58] LABS: Alanine Aminotransferase 36 U/L (0-41); Alkaline Phosphatase 145 IU/L (40-130); Aspartate Amino Transferase 28 U/L (0-40); Blood Urea Nitrogen 12 mg/dL (8-23); Calcium 9.5 mg/dL (8.5-10.5); Carbon Dioxide 22 mmol/L (22-29); Chloride 96 mmol/L (98-107); Globulin 2.9 g/dL (1.3-4.6); Glucose 203 mg/dL (65-115); Osmolality Calculated 280 mOsm/kg (285-295); Sodium 132 mmol/L (136-145); Total Bilirubin 0.4 mg/dL (0.15-1.2); Total Protein 6.9 g/dL (6.6-8.7)
--- NOTE | 2021-05-11 11:38 | ONC FU_ITS ---
Dr. Simmons follow up note Patient: Jann Salas Unit #: [id number]: 1945 Dicatated By: Mikki Simmons M.D.Date of Visit:May 11, 2021 Onc Med Follow-up/Prog Note History of Present Illness: Mr. Jann Salas, is a 75-year-old gentleman with history of progressive shortness of breath over the period of 6-months prior to the diagnosis underwent CT scan of the chest in November 2020 which showed right lower lobe mass measuring 2.9 x 4.4 x 4.98 with no significant lymphadenopathy and also shows emphysema, subsequently patient underwent CT PET scan on November 17, 2020 which showed hypermetabolic right lower lobe lung mass without any evidence of metastatic disease. And on December 30, 2020 underwent bronchoscopy and ultrasound-guided transbronchial biopsy obtained from right lower lobe mass confirmed non-small cell lung cancer probably squamous cell and lymph node biopsy from station 7 and 11 R showed no evidence of malignancy Patient is a former smoker used to smoke 2 packs/day for 45 years., Occasional alcohol intake, past medical history significant for hypertension, hyperlipidemia, detached retina status post eye surgery Patient denies any hemoptysis or hematemesis, denies any headaches blurred vision or double vision, denies any bony pains, denies any weight loss, denies any jaundice. 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, clear surgical margin T2b, 1 out of 11 lymph node positive for metastatic disease in ipsilateral mediastinal and/or subcarinal lymph node N2, M0, patient tolerated procedure well Molecular profile confirmed PD-L1 1%, otherwise EGFR, ALK, BRAF, ROS1, RET, MET all negative Started on adjuvant therapy with 3 weekly carboplatin/Taxol X4 on 03/30/2021 Came for follow-up, denies any specific complaints, except progressive shortness of breath and off-and-on dizziness and palpitation, and mild fingertip numbness, no fever chills, no nausea or vomiting, no diarrhea or constipation, no skin rash, no diarrhea or constipation, tolerating systemic therapy with carboplatin/Taxol, well otherwise Medications: Adult Aspirin EC Low Strength (81 mg) Tablet, enteric coated Oral daily, Ezetimibe (10 mg) Tablet Oral daily, Ipratropium [place] (0.03 %) Solution Nasal b.i.d., levoFLOXacin 1 Each (of 750 mg) Tablet Oral daily for 5 days, Lisinopril-hydroCHLOROthiazide (20-12.5 mg) Tablet Oral daily, PARoxetine HCl (40 mg) Tablet Oral daily, ProAir HFA (108 (90 base) mcg/act) Aerosol, solution Inhalation 6x/d, Simvastatin (20 mg) Tablet Oral daily, traMADol HCl (50 mg) Tablet Oral b.i.d. PRN, Umeclidinium-Vilanterol (62.5-25 mcg/inh) Aerosol Powder, Breath Activated Inhalation daily Allergies: No Known Allergies. Review of Systems: Review of Systems is not available for this patient. Vital Signs: Performed on May 11, 2021 11:18 Height - 71.00 in Weight - 212.6 lbs (LOW) BSA - 2.16 sq.m BMI - 29.65 Temperature - 97.3 F (LOW) Pulse - 145 /min (HIGH) Respiration - 21 /min BP - 145/76 mm(hg) (HIGH) O2 Sat - 96 % Pain - 0 Fatigue - 0 Performance Status: 1 - No physically strenuous activity, but ambulatory and able to carry out light or sedentary work (e.g. office work, light house work). (ECOG) Physical Examination: ENMT - No mouth sores, no thrush, no jaundice, Respiratory - Few basilar rales otherwise clear, Cardiovascular - Irregular rate and rhythm, Tachycardia, Abdomen - Soft, bowel sounds, Extremities - No visible edema. Lab/Imaging: Test performed on May 11, 2021 08:59 Sodium 132 mmol/L Potassium 4.0 mmol/L Chloride 96 mmol/L CO2 22 mmol/L Anion Gap 18.0 BUN 12 mg/dL Creatinine 0.6 mg/dL Cr Clearance (Est) 142.3700 mL/min Glucose 203 mg/dL Osmolality - Calculated 280 mOsm/kg Calcium 9.5 mg/dL Protein, Total 6.9 g/dL Albumin 4.0 g/dL Globulin 2.9 g/dL Bilirubin, Total 0.4 mg/dL ALT (SGPT) 36 U/L AST (SGOT) 28 U/L Alkaline Phosphatase 145 IU/L WBC 9.2 10 3/uL RBC 4.12 10 6/uL HGB 13.3 g/dL HCT 39.2 % MCV 95.1 fl MCH 32.3 pg MCHC 33.9 g/dL RDW 16.9 % Platelet Count 270 10 3/cmm MPV 9.5 fL Neutrophils 8.13 10 3/uL Lymphocytes 0.9 10 3/uL Monocytes 0.1 10 3/uL Eosinophils 0.0 10 3/uL Basophils 0.0 10 3/uL Neutrophil % 88.8 % Lymphocyte % 9.4 % Monocyte % 0.9 % Eosinophil % 0.0 % Basophils % 0.2 % NRBC % 0 % 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 status post right thoracotomy with right lower lobe lobectomy, mediastinal lymph node dissection done on January 28, 2021 which confirmed 4.5 x 3.5 cm invasive tumor with clear surgical margins T2b, 1 out of 11 positive lymph node and ipsilateral mediastinal and or subcarinal lymph node, N2, M0 stage IIIa Non-small cell carcinoma involving the right lower lobe of lung per ultrasound-guided transbronchial biopsy done on December 30, 2020 Lymph node, station 7 and 11 R biopsy was negative for malignancy CT PET scan done on December 18, 2020 showed FDG positive right lower lobe lung mass negative for local or distant mets. Molecular profiling confirmed PD-L1 1%,, otherwise ALK, BRAF, EGFR, RET, ROS1, MET are all negative Started on adjuvant chemotherapy with carboplatin AUC 5/Taxol 175 mg/m??? every 3 weeks x4 on March 30, 2021 Plan: Discussed with patient regarding his labs white blood count 9.2 hemoglobin 13.3 hematocrit 39.2 platelets 270,000 CMP within normal limit except sodium 132 and glucose 203 Clinically, patient doing reasonably well now with progressive shortness of breath, dizziness and palpitation and tachycardia on exam, it appears patient has atrial fibrillation and heart rate between 120- 140 per minute,But with adequate blood pressure at this point, we will send him to [facility] [place] [place] [facility] for evaluation. As per patient , about 20 years ago he had episode of irregular heart, since then he has been feeling well. And in the recent past, since he is on chemotherapy, he has been feeling weak and tired and now off and on palpitation and shortness of breath., We will hold his chemotherapy today and then he will return to clinic in 1 week with CBC CMP, May consider switching his chemotherapy to weekly carboplatin/Taxol Signed By: Mikki Simmons M.D. <<Signature on File>>
== END 2021-05-17 23:59 | disposition home or self-care (01) ==
LOC: ONCMED 05:40
PROVIDERS: PCP Family Medicine; Visit Provider Internal Medicine Hematology & Oncology
DX: Z51.11 Encounter for antineoplastic chemotherapy (principal); C34.31 Malignant neoplasm of lower lobe, right bronchus or lung; C77.8 Secondary and unspecified malignant neoplasm of lymph nodes of multiple regions; I48.91 Unspecified atrial fibrillation; Z79.899 Other long term (current) drug therapy
CPT/HCPCS: 36591; 80053; 85025; 96367; 96372; 96375; 96377; 96413; 96415; 96417; 99214; 99215; J1100; J1200; J1453; J2469; J2505; J3490; J7030; J7040; J7050; J9045; J9267

== ENCOUNTER 2021-05-11 11:09 | Emergency (ER) | payer MEDICARE, SELFPAY ==
[2021-05-11 11:20] VITALS: BP 114/75; PULSE 139; RESP 20; TEMP 36.2; O2SAT 91; BMI 30.8
[2021-05-11 11:22] VITALS: BP 120/78; PULSE 139; RESP 25; O2SAT 93
--- NOTE | 2021-05-11 11:33 | XR_ITS ---
WS: [id number] Exam: XR chest 1V portable [id number] Date/Time of Exam: 05/11/2021 11:51 AM Reason For Exam: SOB The lungs are clear and fully expanded. Normal cardiomediastinal silhouette. No pleural effusions. A left subclavian port ends in the lower one third of the SVC. Monitoring leads superimpose the chest. XR/XR chest 1V portable [id number] IMPRESSION: 1. Left subclavian port appearing to be in satisfactory position. 2. No acute cardiopulmonary finding.
--- NOTE | 2021-05-11 11:33 | ECG_ITS ---
[facility] Test Date: 2021-05-11 Pat Name: Jann Salas Department: Room: Gender: Male Bracelet Former: : 1945 Requested By: Leticia Spencer I Order Number: [id number] Reading MD: SAMMIE MEJIA Measurements Intervals [facility] Rate: 139 P: -11 GA: 155 QRS: 25 QRSD: 85 T: 53 QT: 345 QTc: 526 Interpretive Statements SINUS TACHYCARDIA NONSPECIFIC ST & T-WAVE ABNORMALITY ABNORMAL RHYTHM ECG No previous ECG available for comparison Electronically Signed On 05-11-2021 21:07:47 CDT by SAMMIE MEJIA [id number] f
--- NOTE | 2021-05-11 11:33 | CT_ITS ---
WS: [id number] Exam: CT angio chest PE protcl [id number] Date/Time of Exam: 05/11/2021 12:11 PM Reason For Exam: SOB, tachycardia, current lung cancer. High pretest prob DLP: 588.[address] scans at [facility] use at least one of these dose optimization techniques: automat ed exposure control; mA and/or kV adjustment per patient size (includes targeted exams where dose is matched to clinical indication); or iterative reconstruction. Compared to the contrast CT study of the chest performed 12/01/2020 No sign of acute PE. Partial right pneumonectomy noted. Small right basal pleural effusion is noted. The thoracic aorta is normal in caliber. The central pulmonary arteries are clear. Subcentimeter medi astinal lymph nodes noted are stable in appearance. The airway is patent. No pericardial effusion. Pr eviously noted mass in the right lower lobe has been excised. No destructive bone lesions. Old compre ssion fracture of the lower T-spine and probably T12. Central lobar emphysematous changes noted. Trip le vessel coronary artery calcifications. A left-sided port extends into the SVC. CT sections of the upper abdomen demonstrate no significant abnormal finding. CT/CT angio chest PE protcl [id number] IMPRESSION: 1. No sign of acute PE. 2. Previously noted right lower lobe pulmonary mass is been excised. Residual s mall right basal pleural effusion is noted. 3. Central lobar emphysematous changes. 4. Subcentimeter mediastinal lymph nodes stable in appearance since prior study .
--- NOTE | 2021-05-11 11:45 | W.ED.ARRPALP ---
HPI - Arrhythmia/Palpitations General: Chief Complaint: Arrhythmia/Palpitations Stated Complaint: FAST HEART RATE Time Seen by Provider: 05/11/21 11:23 Source: patient and RN notes reviewed Mode of arrival: ambulatory Limitations: no limitations History of Present Illness: HPI narrative: Patient is a 75-year-old male who is currently being treated for lung cancer. He was at the oncologist office on was going to get another round of chemotherapy when he noticed that he is tachycardic. Patient states that he has been short of breath for several months and no one has paid any attention to him. Today however when he noticed how fast his heart rate was in the 130s and he was breathing a little heavy they brought him down to the emergency department to be evaluated. Patient denies any chest pain but endorses shortness of breath. He says he has a remote history of an irregular heart rate but has not been on anticoagulation other than 81 mg aspirin. He is not on any calcium channel blockers or beta blockers. MD complaint: rapid heart beat Onset (ago): minute(s) Duration: constant Severity: severe Context: occurred during rest Associated symptoms: Reports short of breath; Deny anxiety, cough, diaphoresis, muscle cramps, nausea, paresthesias, pre-syncope, sense of impending doom, syncope or vomiting Review of Systems General: Reports: 10 or more systems reviewed and unremarkable except in HPI and below Const: Denies: diaphoresis Card: Denies: syncope or pre-syncope GI: Denies: nausea or vomiting Musc: Denies: muscle cramps Psych: Denies: anxiety PFSH ED PFSH: Medical History (Reviewed 05/11/21 @ 11:47 by Leticia Spencer MD, [facility] [place]) Cancer of right lung Detached retina HTN (hypertension) Hyperlipidemia Skin cancer Surgical History (Reviewed 05/11/21 @ 11:47 by Leticia Spencer MD, [facility] [place]) H/O eye surgery H/O knee surgery History of carpal tunnel surgery History of umbilical hernia repair Port-A-Cath in place (03/23/21) Family History (Reviewed 05/11/21 @ 11:47 by Leticia Spencer MD, [facility] [place]) Sister CAD (coronary artery disease) Father Diabetes Mother Stroke Social History (Reviewed 05/11/21 @ 11:47 by Leticia Spencer MD, [facility] [place]) Quit status (tobacco): has quit using tobacco Year quit tobacco: 2020 Former quit date comment: Hx of 2 PPD x 45 Years Smoking risk assessment/counseling performed?: No Alcohol intake: current Alcohol intake frequency: 0-2 Drinks per Day Counseling given: Yes Counseling given: No Lives independently: Yes Household members: spouse Marital status: Current occupational status: retired History of recent travel: No Current gender identity: Male Physical Exam Const: COMMON NORMALS: no acute distress, average body habitus, patient oriented x3, no limitations, healthy appearing, alert and well nourished Neck/C-Spine: COMMON NORMALS: no meningeal signs and no JVD Chest: COMMONS NORMALS: normal inspection of the chest and normal palpation of entire chest wall Resp: COMMON NORMALS: normal respiratory effort, No retractions, No use of accessory muscles, clear to auscultation bilaterally and percussion normal AUSCULTATION: clear to auscultation bilaterally PERCUSSION: percussion normal Cardio: COMMON NORMALS: no JVD, regular rhythm, S1 normal heart sound present, S2 normal heart sound present, No gallops present (Cardio), No clicks present (Cardio), No murmurs present (Cardio), No rub (Cardio) and Peripheral pulses 2+ throughout RATE: tachycardic RHYTHM: regular rhythm HEART SOUNDS: S1 normal heart sound present and S2 normal heart sound present PERIPHERAL PULSES: Peripheral pulses 2+ throughout GI: COMMON NORMALS: Normal to inspection, nondistended, normoactive bowel sounds present, Soft to palpation, non-tender, No hepatosplenomegaly present, no masses and no bruits PALPATION: Yes Soft to palpation and Yes No hepatosplenomegaly present Extremity: COMMON NORMALS: normal to inspection, full ROM, capillary refill normal, no calf tenderness and no pedal edema Neuro: COMMON NORMALS: patient oriented x3 SENSORIUM/ORIENTATION: Yes alert MENINGEAL SIGNS: Yes no meningeal signs Skin: COMMON NORMALS: no rashes or lesions noted, no wounds, turgor normal, no jaundice, no petechiae and no mottling GENERAL SKIN EXAM: no rashes or lesions noted and turgor normal Course Reevaluation(s): Reevaluation #1: Discussed his lab and imaging findings with him. Unremarkable. Heart rate improved after 1 dose of intravenous metoprolol, 2.5 mg. I cannot identify the cause of his tachycardia but we will discharge him home with no new orders. He voiced understanding and is in agreement with the plan. Time: 16:23 Vital Signs: Vital signs: Vital Signs Temperature 97.1 F L 05/11/21 11:20 Pulse Rate 107 H 05/11/21 16:50 Respiratory Rate 17 05/11/21 16:50 Blood Pressure 141/72 05/11/21 16:50 Pulse Oximetry 91 05/11/21 16:50 MDM - Arrhythmia/Palpitations MDM Narrative: Medical decision making narrative: 75-year-old male who was brought into the emergency department by the oncology nurse due to tachycardia. Patient was asymptomatic but his heart rate was in the 130s and 140s. EKG showed sinus tachycardia. Evaluation in the emergency department was negative including a CTA of his lungs. He was given a dose of intravenous metoprolol, 2.5 mg and this helped his heart rate to drop to about 100. He is discharged home with no new orders. Medical Records: Attestation: I reviewed the patient's medical records. Lab Data: Attestation: I reviewed the patient's lab results. Labs: Lab Results 05/11/21 05/11/21 05/11/21 Range/Units 11:48 11:48 11:48 WBC 9.3 (4.0-10.0) 10^3/ uL RBC 4.10 (4.1-5.3) 10^6/u L Hgb 12.9 (11.7-16.6) g/dL Hct 38.3 L (42.0-52.0) % MCV 93.4 (80-94) fl MCH 31.5 (28.0-34.0) pg MCHC 33.7 (30.0-36.0) g/dL RDW 16.7 H (12.1-15.1) % Plt Count 251 (130-400) 10^3/c mm MPV 9.1 (7.4-10.4) fL Neut % (Auto) 89.5 % Lymph % (Auto) 9.4 % [place] % (Auto) 0.6 % Eos % (Auto) 0.0 % Baso % (Auto) 0.1 % Neut # (Auto) 8.34 H (1.8-7.7) 10^3/u L Lymph # (Auto) 0.9 (0.8-4.8) 10^3/u L [place] # (Auto) 0.1 L (0.2-0.9) 10^3/u L Eos # (Auto) 0.0 (0.0-0.8) 10^3/u L Baso # (Auto) 0.0 (0.0-0.1) 10^3/u L Nucleated RBC % (a uto) 0 % Nucleated RBCs # 0.0 /100WBC PT 13.20 (12.1-14.9) SECO NDS INR 0.97 (0.8-1.2) Sodium 135 L (136-145) mmol/L Potassium 3.8 (3.5-5.1) mmol/L Chloride 97 L (98-107) mmol/L Carbon Dioxide 24 (22-29) mmol/L Anion Gap 17.8 (5-19) BUN 15 (8-23) mg/dL Creatinine 0.7 (0.7-1.2) mg/dL GFR Calculation Not Reportable Glucose 251 H (65-115) mg/dL Calculated Osmolal ity 289 (285-295) mOsm/k g Calcium 8.8 (8.5-10.5) mg/dL Total Bilirubin 0.3 (0.15-1.2) mg/dL AST 30 (0-40) U/L ALT 37 (0-41) U/L Alkaline Phosphata se 137 H (40-130) IU/L Troponin T Baselin e (0-15) ng/L Troponin T 120 Min sun'aq (0-15) ng/L Delta Troponin T (0-10) ABS# NT-Pro-B Natriuret Pep 169 (0-450) pg/mL Total Protein 6.6 (6.6-8.7) g/dL Albumin 4.1 (3.5-5.2) g/dL Globulin 2.5 (1.3-4.6) g/dL SARS-CoV-2 Ag (Rap id) (Negative) 05/11/21 05/11/21 05/11/21 Range/Units 11:48 14:35 14:45 WBC (4.0-10.0) 10^3/ uL RBC (4.1-5.3) 10^6/u L Hgb (11.7-16.6) g/dL Hct (42.0-52.0) % MCV (80-94) fl MCH (28.0-34.0) pg MCHC (30.0-36.0) g/dL RDW (12.1-15.1) % Plt Count (130-400) 10^3/c mm MPV (7.4-10.4) fL Neut % (Auto) % Lymph % (Auto) % [place] % (Auto) % Eos % (Auto) % Baso % (Auto) % Neut # (Auto) (1.8-7.7) 10^3/u L Lymph # (Auto) (0.8-4.8) 10^3/u L [place] # (Auto) (0.2-0.9) 10^3/u L Eos # (Auto) (0.0-0.8) 10^3/u L Baso # (Auto) (0.0-0.1) 10^3/u L Nucleated RBC % (a uto) % Nucleated RBCs # /100WBC PT (12.1-14.9) SECO NDS INR (0.8-1.2) Sodium (136-145) mmol/L Potassium (3.5-5.1) mmol/L Chloride (98-107) mmol/L Carbon Dioxide (22-29) mmol/L Anion Gap (5-19) BUN (8-23) mg/dL Creatinine (0.7-1.2) mg/dL GFR Calculation Glucose (65-115) mg/dL Calculated Osmolal ity (285-295) mOsm/k g Calcium (8.5-10.5) mg/dL Total Bilirubin (0.15-1.2) mg/dL AST (0-40) U/L ALT (0-41) U/L Alkaline Phosphata se (40-130) IU/L Troponin T Baselin e 10 (0-15) ng/L Troponin T 120 Min sun'aq 8.55 (0-15) ng/L Delta Troponin T -1.45 L (0-10) ABS# NT-Pro-B Natriuret Pep (0-450) pg/mL Total Protein (6.6-8.7) g/dL Albumin (3.5-5.2) g/dL Globulin (1.3-4.6) g/dL SARS-CoV-2 Ag (Rap id) Negative (Negative) Imaging Data^: CTA Chest: Attestation: I personally reviewed and interpreted this imaging study as follows: Radiologist's impression: [address] [id number] Scan ReportSigned Patient: Dahiana Salas #: [id number]: 5Acct#:[id number]/Sex: 75 / MADM Date: 05/11/21Loc: ERRoom/Bed:Attending Dr: Ordering Provider/Ordering MD: Leticia Spencer MD, [facility] [place] Date of Service: 05/11/21 Procedure(s): CT angio chest PE protcl [id number] Accession Number(s): [id number] Report Number: [id number] WS: [id number] Exam: CT angio chest PE protcl [id number] Date/Time of Exam: 05/11/2021 12:11 PM Reason For Exam: SOB, tachycardia, current lung cancer. High pretest prob DLP: 588.[address] scans at [facility] use at least one of these dose optimization techniques: automated exposure control; mA and/or kV adjustment per patient size (includes targeted exams where dose is matched to clinical indication); or iterative reconstruction. Compared to the contrast CT study of the chest performed 12/01/2020 No sign of acute PE. Partial right pneumonectomy noted. Small right basal pleural effusion is noted. The thoracic aorta is normal in caliber. The central pulmonary arteries are clear. Subcentimeter mediastinal lymph nodes noted are stable in appearance. The airway is patent. No pericardial effusion. Previously noted mass in the right lower lobe has been excised. No destructive bone lesions. Old compression fracture of the lower T-spine and probably T12. Central lobar emphysematous changes noted. Triple vessel coronary artery calcifications. A left-sided port extends into the SVC. CT sections of the upper abdomen demonstrate no significant abnormal finding. CT/CT angio chest PE protcl [id number] IMPRESSION: 1. No sign of acute PE. 2. Previously noted right lower lobe pulmonary mass is been excised. Residual small right basal pleural effusion is noted. 3. Central lobar emphysematous changes. 4. Subcentimeter mediastinal lymph nodes stable in appearance since prior study. Dictated By:Alvaradoigned By:Moises Berkowitz Date/Time:05/11/21 1435DD/ 1422 CXR: Attestation: I personally reviewed and interpreted this imaging study as follows: Radiologist's impression: [address] [id number] ReportSigned Patient: Dahiana Salas #: [id number]: [id number]#:[id number]/Sex: 75 / MADM Date: 05/11/21Loc: ERRoom/Bed:Attending Dr: Ordering Provider/Ordering MD: Leticia Spencer MD, [facility] [place] Date of Service: 05/11/21 Procedure(s): XR chest 1V portable [id number] Accession Number(s): [id number] Report Number: [id number] WS: [id number] Exam: XR chest 1V portable [id number] Date/Time of Exam: 05/11/2021 11:51 AM Reason For Exam: SOB The lungs are clear and fully expanded. Normal cardiomediastinal silhouette. No pleural effusions. A left subclavian port ends in the lower one third of the SVC. Monitoring leads superimpose the chest. XR/XR chest 1V portable [id number] IMPRESSION: 1. Left subclavian port appearing to be in satisfactory position. 2. No acute cardiopulmonary finding. Dictated By:Alvaradoigned By:Moises Berkowitz Date/Time:05/11/21 1203DD/ 1202 EKG Data^: EKG 1: Attestation: I personally reviewed and interpreted this EKG as follows: EKG interpretation date: 05/11/21 EKG interpretation time: 11:16 Prior EKG tracings: not available for review Interpretation: sinus tachycardia HR 139 bpm STD in leads V2-V5 Other EKG comments: Chest CTA 05/11/21 11:33 IMPRESSION: 1. No sign of acute PE. 2. Previously noted right lower lobe pulmonary mass is been excised. Residual small right basal pleural effusion is noted. 3. Central lobar emphysematous changes. 4. Subcentimeter mediastinal lymph nodes stable in appearance since prior study. Chest X-Ray 05/11/21 11:33 IMPRESSION: 1. Left subclavian port appearing to be in satisfactory position. 2. No acute cardiopulmonary finding. EKG 2: Attestation: I personally reviewed and interpreted this EKG as follows: EKG interpretation date: 05/11/21 EKG interpretation time: 14:53 Prior EKG tracings: available for review Interpretation: Sinus tachycardia with occasional PVCs. Heart rate [address] changes. Other EKG comments: Chest CTA 05/11/21 11:33 IMPRESSION: 1. No sign of acute PE. 2. Previously noted right lower lobe pulmonary mass is been excised. Residual small right basal pleural effusion is noted. 3. Central lobar emphysematous changes. 4. Subcentimeter mediastinal lymph nodes stable in appearance since prior study. Chest X-Ray 05/11/21 11:33 IMPRESSION: 1. Left subclavian port appearing to be in satisfactory position. 2. No acute cardiopulmonary finding. Discharge Plan Discharge Patient Disposition: Home Clinical Impression: Sinus tachycardia, Lung cancer Condition: Stable Prescriptions: Continued tramadol 50 mg tablet 50 mg PO BID MDD SEE PHARMACY COMMENT PRN (Reason: Pain) RF: 0 ipratropium bromide 21 mcg (0.03 %) spray,non-aerosol 2 spray intranasal BID RF: 0 lisinopril-hydrochlorothiazide 20-12.5 mg tablet 1 tab PO DAILY RF: 0 paroxetine HCl 40 mg tablet 40 mg PO DAILY RF: 0 aspirin [Adult Aspirin Regimen] 81 mg tablet,delayed release (DR/EC) 81 mg PO DAILY RF: 0 simvastatin 20 mg tablet 20 mg PO DAILY RF: 0 ezetimibe 10 mg tablet 10 mg PO DAILY RF: 0 ondansetron HCl [Zofran] 4 mg tablet 4 mg PO Q6H PRN (Reason: nausea and vomiting) Qty: 20 RF: 0 docusate sodium [Colace] 100 mg capsule 100 mg PO BID Qty: 30 RF: 0 fluticasone propion-salmeterol 250-50 mcg/dose blister with device 1 inh INHALATION BID RF: 0 lidocaine-prilocaine 2.5-2.5 % cream See Rx Instructions .ROUTE .COMPLEX RF: 0 oxycodone-acetaminophen 5-325 mg tablet 1 tab PO BID RF: 0 Super Beta Prostate 1 tab PO DAILY RF: 0 Discharge Orders: Discharge ED (Routine); Ordered 05/11/21 Ordered By: Leticia Spencer Referrals: Pepito Brunson MD [Primary Care Provider] - 1-3 days Discharge Diet: Usual diet Discharge Activity: Increase activity as tolerated Patient Instructions: Atrial Tachycardia (ED) Activity Restrictions/Additional Instructions: Return for any new or worsening symptoms. Follow-up with your primary care provider within 3 days. Continue your home medications. Coding Level of Care Code ED Orthotist/Prosthetist for [facility] Fwd Exam Comprehensive
[2021-05-11 11:53] LABS: Basophils % 0.1 %; Hematocrit 38.3 % (42.0-52.0); Hemoglobin 12.9 g/dL (11.7-16.6); Lymphocytes # 0.9 10^3/uL (0.8-4.8); Lymphocytes % 9.4 %; Mean Corpuscular HGB Conc 33.7 g/dL (30.0-36.0); Mean Corpuscular Hemoglobin 31.5 pg (28.0-34.0); Mean Corpuscular Volume 93.4 fl (80-94); Mean Platelet Volume 9.1 fL (7.4-10.4); Monocytes # 0.1 10^3/uL (0.2-0.9); Monocytes % 0.6 %; Neutrophils # 8.34 10^3/uL (1.8-7.7); Neutrophils % 89.5 %; Nucleated Red Blood Cells % 0 %; Platelet Count 251 10^3/cmm (130-400); Red Cell Distribution Width 16.7 % (12.1-15.1); White Blood Count 9.3 10^3/uL (4.0-10.0)
[2021-05-11 12:11] LABS: INR 0.97 (0.8-1.2)
[2021-05-11 12:18] LABS: Troponin(5th) Baseline 10 ng/L (0-15)
[2021-05-11 12:27] LABS: Alanine Aminotransferase 37 U/L (0-41); Albumin Level 4.1 g/dL (3.5-5.2); Alkaline Phosphatase 137 IU/L (40-130); Anion Gap 17.8 (5-19); Aspartate Amino Transferase 30 U/L (0-40); Blood Urea Nitrogen 15 mg/dL (8-23); Calcium 8.8 mg/dL (8.5-10.5); Carbon Dioxide 24 mmol/L (22-29); Chloride 97 mmol/L (98-107); Globulin 2.5 g/dL (1.3-4.6); Glucose 251 mg/dL (65-115); NT Pro B Type Natriuretic Pept 169 pg/mL (0-450); Osmolality Calculated 289 mOsm/kg (285-295); Potassium 3.8 mmol/L (3.5-5.1); Sodium 135 mmol/L (136-145); Total Bilirubin 0.3 mg/dL (0.15-1.2); Total Protein 6.6 g/dL (6.6-8.7)
[2021-05-11 13:11] VITALS: BP 158/80; PULSE 145; RESP 18; O2SAT 94
[2021-05-11] MEDS: metoprolol tartrate 1 mg/1 mL SDV 5 mL 2.5 MG IVP (13:15)
[2021-05-11 13:30] VITALS: BP 152/82; PULSE 102; RESP 18; O2SAT 94
--- NOTE | 2021-05-11 13:33 | ECG_ITS ---
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
[2021-05-11 14:55] VITALS: BP 124/73; PULSE 103; RESP 18; O2SAT 92
[2021-05-11 15:18] LABS: SARS Covid-2 Antigen Negative (Negative)
[2021-05-11 15:18] LABS: Troponin 5 2HR 8.55 ng/L (0-15)
[2021-05-11 15:22] LABS: Troponin 5 2HR Delta -1.45 ABS# (0-10)
[2021-05-11 16:50] VITALS: BP 141/72; PULSE 107; RESP 17; O2SAT 91
== END 2021-05-11 16:50 | disposition home or self-care (01) ==
PROVIDERS: Emergency Provider Family Medicine; PCP Family Medicine
DX: R00.0 Tachycardia, unspecified (principal); C34.91 Malignant neoplasm of unspecified part of right bronchus or lung; Z79.82 Long term (current) use of aspirin; Z87.891 Personal history of nicotine dependence
CPT/HCPCS: 71045; 71275; 80053; 83880; 84484; 85025; 85610; 87426; 93005; 96374; 99284; J3490; Q9967

== ENCOUNTER 2021-05-18 05:23 | Outpatient (RCR) | payer MEDICARE, SELFPAY ==
[2021-05-18 08:50] LABS: Basophils # 0.1 10^3/uL (0.0-0.1); Basophils % 0.5 %; Eosinophils # 0.2 10^3/uL (0.0-0.8); Eosinophils % 1.6 %; Hematocrit 38.5 % (42.0-52.0); Hemoglobin 12.8 g/dL (11.7-16.6); Lymphocytes # 1.3 10^3/uL (0.8-4.8); Lymphocytes % 12.3 %; Mean Corpuscular HGB Conc 33.2 g/dL (30.0-36.0); Mean Corpuscular Hemoglobin 32.2 pg (28.0-34.0); Mean Corpuscular Volume 96.7 fl (80-94); Mean Platelet Volume 9.5 fL (7.4-10.4); Monocytes # 0.4 10^3/uL (0.2-0.9); Monocytes % 3.5 %; Neutrophils # 8.26 10^3/uL (1.8-7.7); Neutrophils % 81.5 %; Nucleated Red Blood Cells % 0 %; Platelet Count 215 10^3/cmm (130-400); Red Blood Count 3.98 10^6/uL (4.1-5.3); Red Cell Distribution Width 16.6 % (12.1-15.1); White Blood Count 10.1 10^3/uL (4.0-10.0)
[2021-05-18 09:08] LABS: Alanine Aminotransferase 39 U/L (0-41); Albumin Level 3.7 g/dL (3.5-5.2); Alkaline Phosphatase 116 IU/L (40-130); Anion Gap 13.7 (5-19); Aspartate Amino Transferase 39 U/L (0-40); Blood Urea Nitrogen 8 mg/dL (8-23); Calcium 8.6 mg/dL (8.5-10.5); Carbon Dioxide 23 mmol/L (22-29); Chloride 102 mmol/L (98-107); Globulin 2.3 g/dL (1.3-4.6); Glucose 100 mg/dL (65-115); Osmolality Calculated 278 mOsm/kg (285-295); Potassium 3.7 mmol/L (3.5-5.1); Sodium 135 mmol/L (136-145); Total Bilirubin 0.6 mg/dL (0.15-1.2)
[2021-05-18] MEDS: sodium chloride 0.9% 250 ML 75 ML IV (10:54)
[2021-05-18] MEDS: palonosetron 0.25 mg/5 mL SDV IV (10:54)
[2021-05-18] MEDS: famotidine 20 mg/2 mL INJ IVP (10:55)
[2021-05-18] MEDS: diphenhydrAMINE 50 mg/mL SDV 1mL 25 MG IV (10:57)
[2021-05-18] MEDS: fosaprepitant 150 MG in sodium chloride 0.9% 150 ML 300 MG IV (11:16)
[2021-05-18] MEDS: pegfilgrastim 6 mg/0.6 mL Kit (onpro) SUBCUT (16:00)
--- NOTE | 2021-05-19 15:43 | ONC FU_ITS ---
Dr. Simmons follow up note Patient: Jann Salas Unit #: [id number]: 1945 Dicatated By: Mikki Simmons M.D.Date of Visit:May 18, 2021 Onc Med Follow-up/Prog Note History of Present Illness: Mr. Jann Salas, is a 75-year-old gentleman with history of progressive shortness of breath over the period of 6-months prior to the diagnosis underwent CT scan of the chest in November 2020 which showed right lower lobe mass measuring 2.9 x 4.4 x 4.98 with no significant lymphadenopathy and also shows emphysema, subsequently patient underwent CT PET scan on November 17, 2020 which showed hypermetabolic right lower lobe lung mass without any evidence of metastatic disease. And on December 30, 2020 underwent bronchoscopy and ultrasound-guided transbronchial biopsy obtained from right lower lobe mass confirmed non-small cell lung cancer probably squamous cell and lymph node biopsy from station 7 and 11 R showed no evidence of malignancy Patient is a former smoker used to smoke 2 packs/day for 45 years., Occasional alcohol intake, past medical history significant for hypertension, hyperlipidemia, detached retina status post eye surgery Patient denies any hemoptysis or hematemesis, denies any headaches blurred vision or double vision, denies any bony pains, denies any weight loss, denies any jaundice. 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, clear surgical margin T2b, 1 out of 11 lymph node positive for metastatic disease in ipsilateral mediastinal and/or subcarinal lymph node N2, M0, patient tolerated procedure well Molecular profile confirmed PD-L1 1%, otherwise EGFR, ALK, BRAF, ROS1, RET, MET all negative Started on adjuvant therapy with 3 weekly carboplatin/Taxol X4 on 03/30/2021 Came for follow-up, denies any specific complaints, no fever chills, no nausea or vomiting, no diarrhea constipation, last week, patient was sent to [facility] with tachycardia/dyspnea on exertion due to atrial fibrillation, as per patient he was given intravenous medication with that he felt better and was sent home on Toprol, with that his heart rate is under control and he is feeling better, patient has seen his PMD Dr. Brunson who is monitoring him. Patient has not seen cardiology yet. Patient denies any chest pain, or palpitation or dizziness or lightheadedness. Denies any peripheral numbness. Tolerating adjuvant therapy with carboplatin/Taxol well otherwise Medications: Adult Aspirin EC Low Strength (81 mg) Tablet, enteric coated Oral daily, Ezetimibe (10 mg) Tablet Oral daily, Ipratropium [place] (0.03 %) Solution Nasal b.i.d., levoFLOXacin 1 Each (of 750 mg) Tablet Oral daily for 5 days, Lisinopril-hydroCHLOROthiazide (20-12.5 mg) Tablet Oral daily, PARoxetine HCl (40 mg) Tablet Oral daily, ProAir HFA (108 (90 base) mcg/act) Aerosol, solution Inhalation 6x/d, Simvastatin (20 mg) Tablet Oral daily, traMADol HCl (50 mg) Tablet Oral b.i.d. PRN, Umeclidinium-Vilanterol (62.5-25 mcg/inh) Aerosol Powder, Breath Activated Inhalation daily Allergies: No Known Allergies. Review of Systems: Review of Systems is not available for this patient. Vital Signs: Performed on May 18, 2021 09:41 Height - 71.00 in Weight - 210.2 lbs (LOW) BSA - 2.15 sq.m BMI - 29.32 Temperature - 97.6 F (LOW) Pulse - 73 /min Respiration - 18 /min BP - 146/67 mm(hg) (HIGH) O2 Sat - 95 % (LOW) Pain - 0 Fatigue - 6 Performance Status: 0 - Fully active, able to carry on all predisease activities without restrictions. (ECOG) Physical Examination: ENMT - No mouth sores, no thrush, no jaundice, no cervical lymphadenopathy, Respiratory - Lungs are clear to auscultation, Cardiovascular - Irregular rate and rhythm, Abdomen - Soft, bowel sounds present, Extremities - No visible edema. Lab/Imaging: Test performed on May 18, 2021 09:18 Creatinine 0.6 mg/dL Cr Clearance (Est) 142.37 mL/min Test performed on May 18, 2021 08:10 Sodium 135 mmol/L Potassium 3.7 mmol/L Chloride 102 mmol/L CO2 23 mmol/L Anion Gap 13.7 BUN 8 mg/dL Glucose 100 mg/dL Osmolality - Calculated 278 mOsm/kg Calcium 8.6 mg/dL Protein, Total 6.0 g/dL Albumin 3.7 g/dL Globulin 2.3 g/dL Bilirubin, Total 0.6 mg/dL ALT (SGPT) 39 U/L AST (SGOT) 39 U/L Alkaline Phosphatase 116 IU/L WBC 10.1 10 3/uL RBC 3.98 10 6/uL HGB 12.8 g/dL HCT 38.5 % MCV 96.7 fl MCH 32.2 pg MCHC 33.2 g/dL RDW 16.6 % Platelet Count 215 10 3/cmm MPV 9.5 fL Neutrophils 8.26 10 3/uL Lymphocytes 1.3 10 3/uL Monocytes 0.4 10 3/uL Eosinophils 0.2 10 3/uL Basophils 0.1 10 3/uL Neutrophil % 81.5 % Lymphocyte % 12.3 % Monocyte % 3.5 % Eosinophil % 1.6 % Basophils % 0.5 % NRBC % 0 % 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 status post right thoracotomy with right lower lobe lobectomy, mediastinal lymph node dissection done on January 28, 2021 which confirmed 4.5 x 3.5 cm invasive tumor with clear surgical margins T2b, 1 out of 11 positive lymph node and ipsilateral mediastinal and or subcarinal lymph node, N2, M0 stage IIIa Non-small cell carcinoma involving the right lower lobe of lung per ultrasound-guided transbronchial biopsy done on December 30, 2020 Lymph node, station 7 and 11 R biopsy was negative for malignancy CT PET scan done on December 18, 2020 showed FDG positive right lower lobe lung mass negative for local or distant mets. Molecular profiling confirmed PD-L1 1%,, otherwise ALK, BRAF, EGFR, RET, ROS1, MET are all negative Started on adjuvant chemotherapy with carboplatin AUC 5/Taxol 175 mg/m??? every 3 weeks x4 on March 30, 2021 Plan: Discussed with patient regarding his labs white blood count 9.2 hemoglobin 13.3 hematocrit 39.2 platelets 270,000 CMP within normal limit except glucose 203 and sodium 132 Clinically, patient is doing well with no new signs symptom suggestive of disease progression or recurrence, will proceed with next cycle of chemotherapy with carboplatin/Taxol today and then he will return to clinic in 1 week with CBC CMP On exam patient was found to have atrial fibrillation although heart rate is under control, patient will need anticoagulation to prevent thrombosis due to A. fib, at this point will refer him to cardiology for evaluation and further management. Patient was advised in case he has episode of palpitation or tachycardia he need to go to hospital for evaluation otherwise return to clinic in 1 week with CBC CMP. Signed By: Mikki Simmons M.D. <<Signature on File>>
== END 2021-06-16 23:59 | disposition home or self-care (01) ==
LOC: ONCMED 05:23
PROVIDERS: PCP Family Medicine; Visit Provider Internal Medicine Hematology & Oncology
DX: Z51.11 Encounter for antineoplastic chemotherapy (principal); C34.31 Malignant neoplasm of lower lobe, right bronchus or lung; C77.2 Secondary and unspecified malignant neoplasm of intra-abdominal lymph nodes; Z79.899 Other long term (current) drug therapy
CPT/HCPCS: 80053; 85025; 96367; 96375; 96377; 96413; 96415; 96417; 99215; J1100; J1200; J1453; J2469; J2505; J3490; J7030; J7040; J7050; J9045; J9267

== ENCOUNTER 2021-06-03 09:03 | Outpatient (CLI) | payer MEDICARE, SELFPAY ==
--- NOTE | 2021-06-03 09:31 | CT_ITS ---
WS: [id number] CT HEAD TECHNIQUE: Noncontrast CT of the head obtained from the skullbase to the vertex. CLINICAL INFORMATION: HEADACHE, UNSPECIFIED, VERTIGO COMPARISON: None. DLP: 1058.[address] scans at [facility] use at least one of these dose optimization techniques: automated e xposure control; mA and/or kV adjustment per patient size (includes targeted exams where dose is matc hed to clinical indication); or iterative reconstruction. FINDINGS: No evidence of intracranial hemorrhage or mass effect. Ventricular system and basal cisterns are broderick nt. Mild small vessel changes with moderate parenchymal volume loss. No extra-axial fluid collections . No evidence of mass or mass effect. Normal verduzco-white differentiation. Benign basal ganglia calcifi cations. Cavernous carotid calcification. Paranasal sinuses and mastoid air cells are well aerated. .Normal visualized soft tissues. CT/CT head wo con* [id number] IMPRESSION: 1. No evidence of intracranial hemorrhage or mass effect. 2. Mild small vessel changes. Moderate parenchymal volume loss. 3. No acute intracranial findings.
== END 2021-06-03 09:04 | disposition home or self-care (01) ==
PROVIDERS: PCP Family Medicine; Visit Provider Family Medicine
DX: R42 Dizziness and giddiness (principal)
CPT/HCPCS: 70450

== ENCOUNTER 2021-06-30 10:17 | Outpatient (CLI) | payer MEDICARE, SELFPAY ==
--- NOTE | 2021-06-30 10:30 | XR_ITS ---
WS: [id number] XR chest 2V* [id number] REASON FOR EXAM: DYSPNEA FINDI Chemotherapy infusion port over the left chest with transvenous right jugular vein catheter, tip in t he superior vena cava. Posterior right rib resection and decreased volume of the right hemithorax. Compatible with previous thoracotomy and right lower lobe resection for bronchogenic carcinoma demonstrated on previous CT sca n 12/01/2020. Calcified granulomatous disease in both hemithoraces. Chronic appearing interstitial changes in the left lower lung no change from 05/11/2021. Alteration of right hemidiaphragm contour and blunting of the right costophrenic angles, compared to 05/11/2021, suggesting interval development of right pleural effusion. XR/XR chest 2V* [id number] IMPRESSION: Likely interval development of right pleural effusion.
== END 2021-06-30 10:18 | disposition home or self-care (01) ==
LOC: RAD 10:24
PROVIDERS: PCP Family Medicine; Visit Provider Family Medicine
DX: R06.00 Dyspnea, unspecified (principal); J90 Pleural effusion, not elsewhere classified
CPT/HCPCS: 71046

== ENCOUNTER 2021-07-14 08:53 | Outpatient (CLI) | payer MEDICARE, SELFPAY ==
--- NOTE | 2021-07-14 09:03 | CT_ITS ---
WS: [id number] CT CHEST TECHNIQUE: Contrast enhanced CT of the chest with coronal and sagittal reformatted images. CLINICAL INFORMATION: PLEURAL EFFUSION, LUNG MASS RIGHT LOWER LOBE COMPARISON: CT chest May 11, 2021, PET/CT 12/18/2020 and 12/01/2020 DLP: 963.[address] scans at [facility] use at least one of these dose optimization techniques: automated e xposure control; mA and/or kV adjustment per patient size (includes targeted exams where dose is matc hed to clinical indication); or iterative reconstruction. FINDINGS: Postoperative changes resection of the right lower lobe pulmonary mass. Small right pleural effusion. No evidence of recurrent or progressive disease. Calcified right thyroid nodule is stable. Aortic ca lcification. Proximal main pulmonary arteries are normal. A few prominent mediastinal lymph nodes not pathologically enlarged. No mediastinal or hilar lymphadenopathy. Calcified right hilar nodes. No lord bcarinal lymphadenopathy. Adrenal glands are normal. Normal GE junction. Hepatomegaly. Diffuse fatty infiltration of the liver. Mild thoracic kyphosis. Hypertrophic changes thoracic spine. Chronic appearing compression L1 unchan ged. CT/CT chest w con* [id number] IMPRESSION: 1. Postoperative changes resection of the right lower lobe mass. No evidence o f recurrent or progressive disease. 2. Small right pleural effusion is unchanged. 3. No mediastinal or hilar lymphadenopathy. 4. No other changes from previous.
[2021-07-14] MEDS: iohexol 300 mg/mL 100 mL Btl IV (09:35)
== END 2021-07-14 08:54 | disposition home or self-care (01) ==
PROVIDERS: PCP Family Medicine; Visit Provider Family Medicine
DX: J90 Pleural effusion, not elsewhere classified (principal); J98.4 Other disorders of lung; Z20.822 Contact with and (suspected) exposure to COVID-19
CPT/HCPCS: 71260; 87635; Q9967

== ENCOUNTER 2021-07-20 06:09 | Day surgery (SDC) | payer MEDICARE, SELFPAY ==
[2021-07-19 13:32] VITALS: BMI 28.5
[2021-07-20 06:33] VITALS: BP 136/72; PULSE 62; RESP 18; TEMP 36.8; O2SAT 93
[2021-07-20] MEDS: sodium chloride 0.9% 1,000 ML 30 ML IV (06:58)
--- NOTE | 2021-07-20 07:49 | P.HP_ITS ---
Same Day Surgery H&P Indication for Procedure/HPI DATE OF PROCEDURE: July 20, 2021 CHIEF COMPLAINT/INDICATIONFOR SURGICAL PROCEDURE: port removal PREOP DIAGNOSIS: Removal of Port-A-Cath PLANNED PROCEDRUE: Operation Date: 07/20/21 07:50 Proposed Procedures p Portacath Removal 10426 [id number](Not Applicable) - Raz Matta MD Medications/Allergies* Home Medications Medication Instructions Recorded Confirmed Type ezetimibe 10 mg tablet 10 mg PO DAILY 12/22/20 07/19/21 History ipratropium bromide 21 mcg (0.03 2 spray INTRANASAL BID 12/22/20 07/19/21 History %) nasal spray lisinopril 20 1 tab PO DAILY 12/22/20 07/19/21 History mg-hydrochlorothiazide 12.5 mg tablet paroxetine HCl 40 mg tablet 40 mg PO DAILY 12/22/20 07/19/21 History simvastatin 20 mg tablet 20 mg PO DAILY 12/22/20 07/19/21 History Super Beta Prostate 1 tab PO DAILY 05/11/21 07/19/21 History fluticasone propion-salmeterol 1 inh INHALATION BID 05/11/21 07/19/21 History Allergies/Adverse Reactions Allergy/AdvReac Type Severity Reaction Status Date / Time No Known Allergies Allergy Verified 07/05/21 14:31 Current Medications: Generic Name Dose Route Start Last Admin Trade Name Freq PRN Reason Stop Dose Admin Sodium Chloride 1,000 mls @ 30 mls/hr 07/20/21 06:30 07/20/21 06:58 Sodium Chloride 0.9% IV 07/21/21 06:29 30 mls/hr .Q24H SURESH Administration Pertinent History/Comorbid Conditions* Medical History (Updated 05/19/21 @ 00:01 by ) Cancer of right lung Detached retina HTN (hypertension) Hyperlipidemia Skin cancer Surgical History (Updated 07/05/21 @ 14:31 by Raz Matta MD) H/O eye surgery H/O knee surgery History of carpal tunnel surgery History of umbilical hernia repair Port-A-Cath in place (03/23/21) Family History (Updated 12/22/20 @ 12:15 by Lakisha Buchanan LPN) Diabetes Father CAD (coronary artery disease) Sister Stroke Mother Social History Quit status (tobacco): has quit using tobacco Year quit tobacco: 2020 Former quit date comment: Hx of 2 PPD x 45 Years Smoking risk assessment/counseling performed?: No Alcohol intake: current Alcohol intake frequency: 0-2 Drinks per Day Counseling given: Yes Counseling given: No Lives independently: Yes Household members: spouse Marital status: Current occupational status: retired History of recent travel: No Current gender identity: Male Pertinent Exam Findings alert, oriented x 3 and regular rate & rhythm Recommendations Surgery/Procedure today Coding Level of Care Code Acute [employer]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
[2021-07-20] MEDS: lidocaine 1% INJ 20 mL 10 ML XX (08:10)
[2021-07-20 08:22] VITALS: BP 111/62; PULSE 91; RESP 21; TEMP 36.7; O2SAT 94
[2021-07-20 08:25] VITALS: BP 111/62; PULSE 57; RESP 21; O2SAT 92
[2021-07-20 08:30] VITALS: BP 109/62; PULSE 57; RESP 18; TEMP 36.6; O2SAT 95
--- NOTE | 2021-07-20 08:30 | P.PCN_ITS ---
PACU note Post-Anesthesia Exam: awake Disposition: discharged
--- NOTE | 2021-07-20 08:30 | PM.PACU ---
PACU note Post-Anesthesia Exam: awake Disposition: discharged
[2021-07-20 08:40] VITALS: BP 115/64; PULSE 56; RESP 18; O2SAT 93
--- NOTE | 2021-07-20 08:56 | PM.OP ---
Operative Report Date of procedure: July 20, 2021 Pre-op Diagnosis: Removal of Port-A-Cath status post chemotherapy Post-op diagnosis: same Procedure Done: Removal of PowerPort from the left internal jugular vein Pathology: none sent Surgeon: Raz Matta Anesthesia: MAC Condition: stable Disposition: PACU Procedure: Patient was taken to the operating room and her right chest was prepped and draped in a sterile manner. 20 mL of 1% lidocaine with 0.5% Marcaine was infiltrated around the MediPort and catheter in the left internal jugular vein. Using a 15 blade the previous incision was opened, the subcutaneous tissue was divided using electrocautery and MediPort along the catheter was dissected free from the surrounding subcutaneous tissue and removed entirely. The wound was irrigated with saline, hemostasis ensured with electrocautery and subcutaneous tissue was approximated using 3-0 Vicryl suture and skin was closed using running subcuticular 4-0 Monocryl suture. 4x4 and sterile dressings were used as a pressure dressing. The patient was transferred to the recovery room in stable condition.
[2021-07-20 09:10] VITALS: BP 110/62; PULSE 59; RESP 18; O2SAT 92
--- NOTE | 2021-07-20 14:54 | ANE.PACU2 ---
Inpatient post-anesthesia follow up: Airway intact: Yes Vital signs: Temperature 97.8 F Pulse Rate 59 Respiratory Rate 18 Blood Pressure 110/62 Pulse Oximetry 92 Oxygen Delivery Me thod Room Air Oxygen Flow Rate Fraction of Inspir ed Oxygen Hydration adequate: Yes Nausea and vomiting: No Pain level: 1 Mental status: Baseline
== END 2021-07-20 09:18 | disposition home or self-care (01) ==
PROVIDERS: PCP Family Medicine; Visit Provider Surgery
PROC: (CPT 36589; principal; 2021-07-20 07:50)
DX: Z45.2 Encounter for adjustment and management of vascular access device (principal); I10 Essential (primary) hypertension; E78.5 Hyperlipidemia, unspecified; Z85.118 Personal history of other malignant neoplasm of bronchus and lung; Z87.891 Personal history of nicotine dependence
CPT/HCPCS: 36590; J2704; J3010; J3490; J7030

== ENCOUNTER → 2022-02-20 11:50 | Outpatient (BNVA) | payer MEDICARE, SELFPAY | PROVIDERS: PCP Family Medicine; Visit Provider Family Medicine | DX: R91.8 Other nonspecific abnormal finding of lung field (principal); R06.00 Dyspnea, unspecified; I10 Essential (primary) hypertension | CPT/HCPCS: 80053; 83880; 84443; 85025; 85651 ==

== ENCOUNTER 2022-09-04 11:48 | Emergency (ER) | payer MEDICARE, SELFPAY ==
[2022-09-04 12:20] VITALS: BP 134/74; PULSE 71; RESP 15; TEMP 36.4; O2SAT 94
--- NOTE | 2022-09-04 13:01 | XR_ITS ---
WS: [id number] Exam: XR ribs LT mn 3V w CXR1V [id number] Date/Time of Exam: 09/04/2022 1:03 PM Reason For Exam: fall, rib pain There are nondisplaced fractures involving the lateral aspects of the eighth and ninth left ribs. No other acute fractures are noted. The left lung is clear and fully inflated. There may be an old left fourth rib fracture. No pleural effusion seen. XR/XR ribs LT mn 3V w CXR1V [id number] IMPRESSION: 1. Nondisplaced fractures of the lateral aspects of the left eighth and ninth r ibs. No pneumothorax.
--- NOTE | 2022-09-04 13:01 | W.ED.FALL ---
HPI - Fall General: Chief Complaint: Fall Stated Complaint: Fell, left rib hurts Time Seen by Provider: 09/04/22 12:35 Source: patient Mode of arrival: ambulatory Limitations: no limitations History of Present Illness: Patient is a nice 77-year-old male who presents to ED today with complaint of left rib pain. Patient tells me earlier this morning he accidentally rolled out of bed and struck his left ribs on a nightstand. She has no other injuries or complaints at this time. He states he has a chronic lung cancer patient who has decided against treatment and always has some shortness of breath. He does state this is at baseline currently. Is not having any abdominal pain. Denies lightheadedness, dizziness. He denies striking his head or LOC. No neck or back pain. MD complaint: fall Onset (ago): hour(s) Fall from: out of bed Fall witnessed: no Place fall occurred: home Loss of consciousness: None Prolonged down time: no Symptoms prior to fall: none Context: other (rolled out of bed) Location of injury: chest Associated symptoms-after fall: Reports no associated symptoms and chest pain (L lateral ribs); Denies abdominal pain, headache(s), lightheadedness or neck pain Review of Systems Const: Denies: fever(s), chills, body aches, fatigue or malaise Card: Reports: chest pain (L lateral ribs); Denies: palpitations, irregular heart rhythm, edema, swelling of feet/ankles, lightheadedness, syncope or pre-syncope Resp: Reports: dyspnea (chronic-at baseline) and pain on inspiration; Denies: wheezing, stridor or hemoptysis GI: Denies: abdominal pain : Denies: flank pain Musc: Denies: neck pain, back pain, extremity pain or joint pain Neuro: Denies: headache(s) [facility] ACCESS [facility] ED PFSH: Medical History Cancer of right lung Detached retina HTN (hypertension) Hyperlipidemia Skin cancer Surgical History H/O eye surgery H/O knee surgery History of carpal tunnel surgery History of umbilical hernia repair Port-A-Cath in place (03/23/21) removal - 07/20/21 Family History Sister CAD (coronary artery disease) Father Diabetes Mother Stroke Social History Quit status (tobacco): has quit using tobacco Year quit tobacco: 2020 Former quit date comment: Hx of 2 PPD x 45 Years Smoking risk assessment/counseling performed?: No Alcohol intake: current Alcohol intake frequency: 0-2 Drinks per Day Counseling given: Yes Counseling given: No Lives independently: Yes Household members: spouse Marital status: Current occupational status: retired History of recent travel: No Current gender identity: Male Physical Exam Const: COMMON NORMALS: no acute distress, patient oriented x3, no limitations and alert GENERAL APPEARANCE: cooperative ORIENTATION/CONSCIOUSNESS: Yes awake, Yes oriented to person, Yes oriented to place and Yes oriented to time HENMT: COMMON NORMALS: normocephalic and atraumatic HEAD & SCALP: normal to inspection, normocephalic and atraumatic FACE & SINUS: normal facial exam Neck/C-Spine: COMMON NORMALS: full ROM GENERAL: Yes normal visual inspection CERVICAL SPINE: No Cervical spine tenderness Chest: CHEST: Yes localized rib tenderness with anteroposterior compression OTHER: pt has tenderness to L lateral lower ribs without bony crepitus; there is a small amount of ecchymosis directly over where patient is tender Resp: COMMON NORMALS: normal respiratory effort and clear to auscultation bilaterally EFFORT & INSPECTION: Yes able to speak in complete sentences AUSCULTATION: clear to auscultation bilaterally Cardio: COMMON NORMALS: regular rate and regular rhythm RATE: regular rate RHYTHM: regular rhythm GI: COMMON NORMALS: Normal to inspection, nondistended, normoactive bowel sounds present, Soft to palpation, non-tender, No hepatosplenomegaly present and no masses PALPATION: Yes Soft to palpation and Yes No hepatosplenomegaly present : COMMON NORMALS: Yes no CVA tenderness BLADDER/KIDNEY EXAM: Yes no CVA tenderness Back/Pelvis: COMMON NORMALS: no CVA tenderness, thoracic and lumbar spine normal to inspection, no thoracic nor lumbar tenderness and thoraco-lumbar ROM normal Extremity: COMMON NORMALS: normal to inspection GENERAL: Yes normal exam except as noted Neuro: SOLO COMA SCALE: document GCS findings Solo coma scale eye opening: Spontaneous [place] coma scale verbal response: Orientated [place] coma scale motor response: Obey commands [place] coma scale total score: 15 COMMON NORMALS: patient oriented x3, moves all extremities, no focal motor deficits and no sensory deficits noted SENSORIUM/ORIENTATION: Yes alert, Yes oriented to person, Yes oriented to place and Yes oriented to time Skin: TRAUMA: no lacerations Course Vital Signs: Vital signs: Vital Signs Temperature 97.5 F L 09/04/22 12:20 Pulse Rate 63 09/04/22 13:08 Respiratory Rate 15 09/04/22 13:08 Blood Pressure 126/63 09/04/22 13:08 Pulse Oximetry 93 09/04/22 13:08 Oxygen Delivery Me thod 09/04/22 12:20 MDM - Fall Medical Decision Making Patient here with left rib pain following a fall after he rolled out of bed accidentally and struck his left ribs on a nightstand. Patient does have 2 nondisplaced fractures of the lateral eighth and ninth ribs. Would have a low suspicion for any type of deeper intra-thoracic or intra-abdominal pathology given his low mechanism of injury nonetheless we did discuss CT imaging as plain films can often miss the extent of trauma however patient adamantly refuses stating he will follow-up with PCP or return to ED if symptoms worsen. I think this is appropriate. Vital signs are stable. He does have an incentive spirometer at home he may use. He will be provided pain medications to use as needed. Lab Data Radiology Impressions Ribs X-Ray 09/04/22 13:01 IMPRESSION: 1. Nondisplaced fractures of the lateral aspects of the left eighth and ninth ribs. No pneumothorax. Discharge Plan Discharge Patient Disposition: Home Clinical Impression: Multiple fractures of ribs of left side Qualifiers: Encounter type: initial encounter Fracture type: closed Qualified Code(s): S22.42XA - Multiple fractures of ribs, left side, initial encounter for closed fracture Condition: Stable Prescriptions: New hydrocodone-acetaminophen 5-325 mg tablet 1 tab PO Q6H PRN (Reason: pain) Qty: 20 0RF No Action ipratropium bromide 21 mcg (0.03 %) spray,non-aerosol 2 spray intranasal BID Rx Instructions: administer into each nostril lisinopril-hydrochlorothiazide 20-12.5 mg tablet 1 tab PO DAILY paroxetine HCl 40 mg tablet 40 mg PO DAILY ezetimibe 10 mg tablet 10 mg PO DAILY Qty: 90 3RF Rx Instructions: take with simvastatin simvastatin 20 mg tablet See Rx Instructions .ROUTE .COMPLEX Qty: 90 3RF Dose Instruction: TAKE 1 TABLET BY MOUTH ONCE DAILY (TAKE WITH EZETIMIBE 10MG) Rx Instructions: TAKE 1 TABLET BY MOUTH ONCE DAILY (TAKE WITH EZETIMIBE 10MG) fluticasone propion-salmeterol 250-50 mcg/dose blister with device 1 inh INHALATION BID Super Beta Prostate 1 tab PO DAILY Discharge Orders: Discharge ED (Routine); Ordered 09/04/22 Ordered By: Anu Foster Referrals: Pepito Brunson MD [Primary Care Provider] - Patient Instructions: Opioid Safety, Pain Management, Fractures - Rib Activity Restrictions/Additional Instructions: As we discussed I want to doing your incentive spirometer at home is much as possible. You may take pain medications as needed for severe pain. Please follow-up with your primary care provider in 2 to 3 days for re-evaluation. Need to return to the emergency department for worsening or severe chest pain, difficulty breathing, shortness of breath, fevers, abdominal pain or bruising, or any other concerns you may have. I hope you begin to feel better soon. 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
[2022-09-04 13:07] VITALS: RESP 15
[2022-09-04] MEDS: morphine 4 mg/mL SDV 1 mL IM (13:07)
[2022-09-04] MEDS: ondansetron 2 mg/ML SDV 2 mL 4 MG IM (13:07)
[2022-09-04 13:08] VITALS: BP 126/63; PULSE 63; RESP 15; O2SAT 93
== END 2022-09-04 14:27 | disposition home or self-care (01) ==
PROVIDERS: Emergency Provider Physician Assistant; PCP Family Medicine
DX: S22.42XA Multiple fractures of ribs, left side, initial encounter for closed fracture (principal); W06.XXXA Fall from bed, initial encounter
CPT/HCPCS: 71101; 96372; 99284; J2270; J2405

== ENCOUNTER → 2023-01-05 08:38 | Outpatient (BNVA) | payer MEDICARE, SELFPAY | PROVIDERS: PCP Family Medicine; Visit Provider Family Medicine | DX: Z00.00 Encounter for general adult medical examination without abnormal findings (principal); R35.1 Nocturia; E78.5 Hyperlipidemia, unspecified | CPT/HCPCS: 80053; 80061; 84153; 85025 ==

== ENCOUNTER → 2024-01-31 14:00 | Outpatient (BNVA) | payer MEDICARE, SELFPAY | PROVIDERS: PCP Family Medicine; Visit Provider Family Medicine | DX: I10 Essential (primary) hypertension (principal); R35.1 Nocturia | CPT/HCPCS: 80053; 80061; 84153 ==